=== PATIENT | male | born 1940 | race Caucasian/White ===

== ENCOUNTER 2017-05-18 20:50 | Outpatient (CLI) | payer OTHER ==
[2017-05-18 19:25] LABS: BASOPHILS % (AUTO) 0.5 %; EOSINOPHILS # (AUTO) 0.2 10^3/uL (0.0-0.7); EOSINOPHILS % (AUTO) 3.1 %; HCT - HEMATOCRIT 31.7 % (42.0-52.0); HGB - HEMOGLOBIN 10.7 g/dL (14.0-18.0); IMMATURE RETIC FRACTION 0.43; LYMPHOCYTES # (AUTO) 1.7 10^3/uL (1.5-3.5); LYMPHOCYTES % (AUTO) 24.7 %; MEAN CORPUSCULAR HEMOGLOBIN 31.6 pg (27.0-31.0); MEAN CORPUSCULAR HGB CONC 33.8 g/dL (32.0-36.0); MEAN CORPUSCULAR VOLUME 93.6 fL (80.0-94.0); MEAN PLATELET VOLUME 7.7 fL (7.4-11.4); MONOCYTES # (AUTO) 0.6 10^3/uL (0.0-1.0); MONOCYTES % (AUTO) 8.6 %; NEUTROPHILS # (AUTO) 4.5 10^3/uL (1.5-6.6); NEUTROPHILS % (AUTO) 63.1 %; RED BLOOD COUNT 3.39 10^6/uL (4.70-6.10); UNCORRECTED WHITE BLOOD COUNT 7.1 x10^3/uL; WHITE BLOOD COUNT 7.1 x10^3/uL (4.8-10.8)
[2017-05-18 19:40] LABS: FERRITIN 15.8 ng/mL (23.9-336.2); IRON 58 ug/dL (45-182); TOTAL IRON BINDING CAPACITY 340 ug/dL (250-450); TRANSFERRIN 243 mg/dL (180-329)
[2017-05-18 19:44] LABS: FOLATE 18.15 ng/mL (5.90 - >24.8)
== END 2017-05-18 20:51 | disposition home or self-care (01) ==
LOC: LAB.WCP 20:50
PROVIDERS: ATTEND Family Medicine
DX: D64.9 Anemia, unspecified (principal)
CPT/HCPCS: 36415; 82607; 82728; 82746; 83540; 84466; 85025; 85044

== ENCOUNTER 2017-12-03 08:11 | Outpatient (CLI) | payer OTHER ==
[2017-12-03 12:42] LABS: BASOPHILS % (AUTO) 0.7 %; EOSINOPHILS # (AUTO) 0.2 10^3/uL (0.0-0.7); EOSINOPHILS % (AUTO) 3.9 %; HGB - HEMOGLOBIN 11.4 g/dL (14.0-18.0); LYMPHOCYTES % (AUTO) 31.6 %; MEAN CORPUSCULAR HEMOGLOBIN 31.9 pg (27.0-31.0); MEAN CORPUSCULAR HGB CONC 34.2 g/dL (32.0-36.0); MEAN CORPUSCULAR VOLUME 93.2 fL (80.0-94.0); MEAN PLATELET VOLUME 7.7 fL (7.4-11.4); MONOCYTES # (AUTO) 0.5 10^3/uL (0.0-1.0); MONOCYTES % (AUTO) 8.3 %; NEUTROPHILS # (AUTO) 3.5 10^3/uL (1.5-6.6); NEUTROPHILS % (AUTO) 55.5 %; PLT - PLATELET COUNT 237 10^3/uL (130-450); RED BLOOD COUNT 3.59 10^6/uL (4.70-6.10); RED CELL DISTRIBUTION WIDTH 13.3 % (12.0-15.0); WHITE BLOOD COUNT 6.3 x10^3/uL (4.8-10.8)
[2017-12-03 13:14] LABS: ALBUMIN 4.2 g/dL (3.2-5.5); ALBUMIN/GLOBULIN RATIO 1.4 (1.0-2.2); ALKALINE PHOSPHATASE 118 IU/L (42-121); ALT ALANINE AMINOTRANSFERASE 20 IU/L (10-60); AST ASPARTATE AMINOTRANSFERASE 31 IU/L (10-42); BILIRUBIN,TOTAL 0.8 mg/dL (0.2-1.0); BUN - BLOOD UREA NITROGEN 14 mg/dL (6-20); CALCIUM 9.4 mg/dL (8.5-10.3); CARBON DIOXIDE - CO2 29 mmol/L (21-32); CHLORIDE 104 mmol/L (101-111); CHOL/HDL RATIO 2.8 (<5.0); CHOLESTEROL 124 mg/dL; CREATININE 1.1 mg/dL (0.6-1.2); GFR - MDRD 65 (>89); GLUCOSE 100 mg/dL (70-100); HDL CHOLESTEROL 45 mg/dL; LDL CHOLESTEROL,CALCULATED 53 mg/dL; LDL/HDL RATIO 1.2 (<3.6); SODIUM 138 mmol/L (135-145); TOTAL PROTEIN 7.3 g/dL (6.7-8.2); VLDL CHOLESTEROL 26 mg/dL
[2017-12-03 13:46] LABS: HB2 TOTAL 12.1 g/dL; HEMOGLOBIN A1C 0.52 g/dL; HEMOGLOBIN A1C % 6.1 % (4.6-6.2)
== END 2017-12-03 08:12 | disposition home or self-care (01) ==
LOC: LAB.WCP 08:11
PROVIDERS: ATTEND Family Medicine
DX: I10 Essential (primary) hypertension (principal); E78.5 Hyperlipidemia, unspecified; Z12.5 Encounter for screening for malignant neoplasm of prostate
CPT/HCPCS: 36415; 80053; 80061; 83036; 83721; 84153; 85025

== ENCOUNTER 2018-06-16 08:10 | Outpatient (CLI) | payer OTHER ==
[2018-06-16 14:17] LABS: HB2 TOTAL 11.7 g/dL; HEMOGLOBIN A1C 0.51 g/dL; HEMOGLOBIN A1C % 6.1 % (4.6-6.2)
[2018-06-16 14:21] LABS: PSA FREE 1.06 ng/mL (0.16-2.81)
[2018-06-16 14:22] LABS: PSA TOTAL 3.37 ng/mL (0.000-2.000)
[2018-06-16 14:32] LABS: ALBUMIN 4.1 g/dL (3.2-5.5); ALBUMIN/GLOBULIN RATIO 1.4 (1.0-2.2); BILIRUBIN,TOTAL 0.2 mg/dL (0.2-1.0); CALCIUM 9.5 mg/dL (8.5-10.3); CREATININE 0.9 mg/dL (0.6-1.2); TOTAL PROTEIN 7.1 g/dL (6.7-8.2)
== END 2018-06-16 23:59 | disposition home or self-care (01) ==
LOC: LAB.WCP 08:10
PROVIDERS: ATTEND Family Medicine
DX: E11.40 Type 2 diabetes mellitus with diabetic neuropathy, unspecified (principal); B35.1 Tinea unguium; R97.20 Elevated prostate specific antigen [PSA]; I10 Essential (primary) hypertension
CPT/HCPCS: 36415; 80053; 82043; 83036; 84153; 84154

== ENCOUNTER 2018-07-08 08:00 | Outpatient (CLI) | payer OTHER ==
[2018-07-08 12:14] LABS: BASOPHILS % (AUTO) 0.1 %; EOSINOPHILS # (AUTO) 0.1 10^3/uL (0.0-0.7); EOSINOPHILS % (AUTO) 0.9 %; LYMPHOCYTES # (AUTO) 1.2 10^3/uL (1.5-3.5); LYMPHOCYTES % (AUTO) 9.4 %; MEAN CORPUSCULAR HEMOGLOBIN 31.8 pg (27.0-31.0); MEAN CORPUSCULAR HGB CONC 34.4 g/dL (32.0-36.0); MEAN CORPUSCULAR VOLUME 92.6 fL (80.0-94.0); MEAN PLATELET VOLUME 7.8 fL (7.4-11.4); MONOCYTES # (AUTO) 1.1 10^3/uL (0.0-1.0); NEUTROPHILS # (AUTO) 10.1 10^3/uL (1.5-6.6); NEUTROPHILS % (AUTO) 80.6 %; PLT - PLATELET COUNT 320 10^3/uL (130-450); RED BLOOD COUNT 3.46 10^6/uL (4.70-6.10); RED CELL DISTRIBUTION WIDTH 13.4 % (12.0-15.0); WHITE BLOOD COUNT 12.6 x10^3/uL (4.8-10.8)
[2018-07-08 13:28] LABS: ALBUMIN 3.5 g/dL (3.2-5.5); BILIRUBIN,TOTAL 1.7 mg/dL (0.2-1.0); CALCIUM 9.1 mg/dL (8.5-10.3); CREATININE 5.5 mg/dL (0.6-1.2)
== END 2018-07-08 23:59 | disposition home or self-care (01) ==
LOC: LAB.WCP 08:00
PROVIDERS: ATTEND Physician Assistant
DX: R29.6 Repeated falls (principal); E11.9 Type 2 diabetes mellitus without complications
CPT/HCPCS: 36415; 80053; 85025

== ENCOUNTER 2018-07-08 15:00 | Inpatient (IN) | payer MEDICARE, OTHER ==
[2018-07-08 16:41] LABS: GLUCOSE, URINE (UA) NEGATIVE (NEGATIVE); KETONES,URINE (UA) NEGATIVE (NEGATIVE); LEUKOCYTE ESTERASE, URINE NEGATIVE (NEGATIVE); NITRITE,URINE NEGATIVE (NEGATIVE); OCCULT BLOOD,URINE LARGE (NEGATIVE); PROTEIN,URINE 30 mg/dL (NEGATIVE); UROBILINOGEN,URINE 0.2 (NORMAL) E.U./dL (NORMAL)
[2018-07-08 16:44] LABS: BILIRUBIN,URINE SMALL (NEGATIVE); CLARITY,URINE HAZY (CLEAR); ICTOTEST,URINE POSITIVE
[2018-07-08 16:44] LABS: BASOPHILS % (AUTO) 0.1 %; EOSINOPHILS # (AUTO) 0.1 10^3/uL (0.0-0.7); EOSINOPHILS % (AUTO) 1.1 %; HGB - HEMOGLOBIN 11.5 g/dL (14.0-18.0); LYMPHOCYTES # (AUTO) 1.4 10^3/uL (1.5-3.5); LYMPHOCYTES % (AUTO) 10.9 %; MEAN CORPUSCULAR HEMOGLOBIN 31.2 pg (27.0-31.0); MEAN CORPUSCULAR HGB CONC 33.8 g/dL (32.0-36.0); MEAN CORPUSCULAR VOLUME 92.3 fL (80.0-94.0); MEAN PLATELET VOLUME 7.2 fL (7.4-11.4); MONOCYTES # (AUTO) 1.1 10^3/uL (0.0-1.0); MONOCYTES % (AUTO) 8.6 %; NEUTROPHILS # (AUTO) 9.9 10^3/uL (1.5-6.6); NEUTROPHILS % (AUTO) 79.3 %; PLT - PLATELET COUNT 354 10^3/uL (130-450); RED BLOOD COUNT 3.69 10^6/uL (4.70-6.10); RED CELL DISTRIBUTION WIDTH 13.5 % (12.0-15.0); WHITE BLOOD COUNT 12.5 x10^3/uL (4.8-10.8)
[2018-07-08 16:48] LABS: AMORPHOUS SEDIMENT,UR Moderate /LPF; BACTERIA,URINE Rare /HPF (None Seen); EPITHELIAL CELLS,UR FEW Transitional /HPF (<= Few); SQUAMOUS EPITHELIAL CELL,UR FEW Squamous (<= Few)
[2018-07-08 16:57] LABS: PT - PROTHROMBIN TIME 11.7 secs (9.9-12.6)
--- NOTE | 2018-07-08 17:03 | XRAY Report ---
Reason: cp Procedure Date: 07/08/2018 Accession Number: [id number] / [id number] Procedure: XR - Chest 2 View X-Ray CPT Code: 54618 FULL RESULT: EXAM: CHEST RADIOGRAPHY EXAM DATE: 07/08/2018 04:39 PM. CLINICAL HISTORY: Chest pain. COMPARISON: RIBS W/PA CHEST RT 07/08/2018 9:31 AM. TECHNIQUE: 2 views. FINDINGS: Heart size is normal. Calcified plaques in the thoracic aorta. Lung volumes are low. There are patchy densities in the lung bases bilaterally. No pleural effusions or pneumothoraces. The bones are osteopenic. Previously described right fifth rib fracture is not well seen on these projections. IMPRESSION: Nonspecific patchy densities in the lung bases bilaterally. No significant change from the recent prior exam. Infectious etiology or aspiration not excluded. RADIA
[2018-07-08 17:24] LABS: ALBUMIN 3.8 g/dL (3.2-5.5); ALBUMIN/GLOBULIN RATIO 0.9 (1.0-2.2); BILIRUBIN,TOTAL 1.4 mg/dL (0.2-1.0); CALCIUM 9.1 mg/dL (8.5-10.3); CREATININE 5.4 mg/dL (0.6-1.2)
[2018-07-08] MEDS ORDERED: SODIUM CHLORIDE 0.9% 2,000 ML IV ONE (18:29)
--- NOTE | 2018-07-08 18:35 | ED Physician Documentation ---
History of Present Illness - Stated complaint Stated Complaint: SENT BY DR Minnie Goddard information Additional information: 78-year-old male was sent to the emergency department for further evaluation of abnormal labs. The patient recently fell at home and was on the ground for a prolonged period of time. The patient reports pain in his right ribs and body wide muscle pain. The patient is felt confused and fatigued and generally unwell. Symptoms are described as severe. No relieving factors. No other associated symptoms. The patient also struck his head Review of Systems Constitutional: reports: Myalgias, Fatigue. denies: Fever Eyes: denies: Discharge Ears: denies: Ear pain Nose: denies: Congestion Throat: denies: Sore throat Cardiac: reports: Chest pain / pressure Respiratory: denies: Dyspnea, Cough GI: denies: Abdominal Pain : reports: Hematuria. denies: Dysuria Skin: denies: Rash Musculoskeletal: denies: Neck pain, Back pain, Extremity pain Neurologic: denies: Generalized weakness Immunocompromised: denies: Chemotherapy PD PAST MEDICAL HISTORY - Present Medications Home Medications: Ambulatory Orders Medication Instructions Recorded Confirmed Lisinopril 20 mg PO DAILY 12/26/12 07/08/18 Metformin HCl 500 mg PO BID 12/26/12 07/08/18 Simvastatin 20 mg PO DAILY 12/26/12 07/08/18 Aspirin Chewable [[facility] Adam 81 mg PO DAILY 07/08/18 07/08/18 Aspirin] Gabapentin 600 mg PO TID 07/08/18 07/08/18 Hydrochlorothiazide 12.5 mg PO DAILY 07/08/18 07/08/18 - Allergies Allergies/Adverse Reactions: Allergies Allergy/AdvReac Type Severity Reaction Status Date / Time nortriptyline [Nortriptyline] Allergy Unknown unknown Verified 07/08/18 15:05 PD ED PE NORMAL - General General: Alert and oriented X 3, Other (The patient appears uncomfortable and has bruising throughout his entire torso) - HEENT HEENT: Atraumatic, PERRL, Ears normal - Neck Neck: No bony TTP - Cardiac Cardiac: RRR, Strong equal pulses, Other (The patient has right-sided chest wall tenderness, no crepitus or subcutaneous emphysema) - Respiratory Respiratory: No respiratory distress, Clear bilaterally - Abdomen Abdomen: Soft, Non tender, Non distended - Derm Derm: Other (Bruising in multiple places) - Extremities Extremities: No deformity, No tenderness to palpate, Normal ROM s pain - Neuro Neuro: Alert and oriented X 3, No motor deficit, Normal speech - Psych Psych: Normal affect Results - Vitals Vitals: Vital Signs - 24 hr 07/08/18 07/08/18 07/08/18 15:05 17:36 18:46 Temperature 36.6 C Heart Rate 97 79 80 Respiratory 16 18 18 Rate Blood Pressure 132/47 H 116/71 125/71 O2 Saturation 98 98 97 Oxygen O2 Source Room air - Labs Labs: Laboratory Tests 07/08/18 07/08/18 07/08/18 16:00 16:15 16:15 WBC 12.5 H RBC 3.69 L Hgb 11.5 L Hct 34.1 L MCV 92.3 MCH 31.2 H MCHC 33.8 RDW 13.5 Plt Count 354 MPV 7.2 L Neut # (Auto) 9.9 H Lymph # (Auto) 1.4 L [place] # (Auto) 1.1 H Eos # (Auto) 0.1 Baso # (Auto) 0.0 Absolute Nucleated RBC 0.00 Nucleated RBC % 0.0 PT 11.7 INR 1.0 Sodium Potassium Chloride Carbon Dioxide Anion Gap BUN Creatinine Estimated GFR (MDRD) Glucose Calcium Total Bilirubin AST ALT Alkaline Phosphatase Total Creatine Kinase Total Protein Albumin Globulin Albumin/Globulin Ratio Lipase Urine Color DARK YELLOW Urine Clarity HAZY Urine pH 5.0 Ur Specific [place] >=1.030 H Urine Protein 30 H Urine Glucose (UA) NEGATIVE Urine Ketones NEGATIVE Urine Occult Blood LARGE H Urine Nitrite NEGATIVE Urine Bilirubin SMALL H Urine Urobilinogen 0.2 (NORMAL) Ur Leukocyte Esterase NEGATIVE Urine RBC 11-25 H Urine WBC 0-3 Ur Epithelial Cells FEW Transitional Ur Squamous Epith Cells FEW Squamous Amorphous Sediment Moderate Urine Bacteria Rare Ur Microscopic Review INDICATED Urine Culture Comments NOT INDICATED 07/08/18 16:15 WBC RBC Hgb Hct MCV MCH MCHC RDW Plt Count MPV Neut # (Auto) Lymph # (Auto) [place] # (Auto) Eos # (Auto) Baso # (Auto) Absolute Nucleated RBC Nucleated RBC % PT INR Sodium 136 Potassium 3.7 Chloride 98 L Carbon Dioxide 23 Anion Gap 15.0 H BUN 93 H* Creatinine 5.4 H Estimated GFR (MDRD) 10 L Glucose 159 H Calcium 9.1 Total Bilirubin 1.4 H AST 302 H ALT 128 H Alkaline Phosphatase 210 H Total Creatine Kinase 50382 H* Total Protein 8.0 Albumin 3.8 Globulin 4.2 Albumin/Globulin Ratio 0.9 L Lipase 36 Urine Color Urine Clarity Urine pH Ur Specific [place] Urine Protein Urine Glucose (UA) Urine Ketones Urine Occult Blood Urine Nitrite Urine Bilirubin Urine Urobilinogen Ur Leukocyte Esterase Urine RBC Urine WBC Ur Epithelial Cells Ur Squamous Epith Cells Amorphous Sediment Urine Bacteria Ur Microscopic Review Urine Culture Comments - Rads (name of study) CXR Radiology: Final report received CT head Radiology: Final report received, See rad report PD MEDICAL DECISION MAKING - ED course ED course: The patient appears to have acute renal failure secondary to rhabdomyolysis and will require admission to the hospital for further management of this acute finding. The patient also has a rib fracture which will need ongoing pain management. The findings and plan were discussed the patient who understands and agrees to the plan. The case was discussed with the hospitalist who accepts the patient onto his service. Departure - Departure Disposition: [facility] DC/Xfer Clinical Impression: Acute kidney injury due to trauma Rhabdomyolysis Qualifiers: Rhabdomyolysis type: traumatic Encounter type: initial encounter Qualified Code(s): T79.6XXA - Traumatic ischemia of muscle, initial encounter Rib fracture Qualifiers: Encounter type: initial encounter Rib fracture type: single rib Fracture type: closed Laterality: right Qualified Code(s): S22.31XA - Fracture of one rib, right side, initial encounter for closed fracture Condition: Fair Discharge Date/Time: 07/08/18 20:25
--- NOTE | 2018-07-08 19:24 | CT Report ---
Reason: fall, confusion Procedure Date: 07/08/2018 Accession Number: [id number] / [id number] Procedure: CT - Head W/O CPT Code: FULL RESULT: EXAM: CT HEAD EXAM DATE: 07/08/2018 06:42 PM. CLINICAL HISTORY: Fall, confusion. COMPARISON: HEAD 06/24/2006 9:21 AM. TECHNIQUE: Multiaxial CT images were obtained from the foramen magnum to the vertex. Reformats: Sagittal and coronal. IV contrast: None. In accordance with CT protocol optimization, one or more of the following dose reduction techniques were utilized for this exam: automated exposure control, adjustment of mA and/or KV based on patient size, or use of iterative reconstructive technique. FINDINGS: Parenchyma: There is encephalomalacia within the inferior left frontal lobe which is new since previous. There is volume loss in the right parietal occipital lobe. Negative for acute intracranial hemorrhage. No significant midline shift. Extraaxial Spaces: No subdural or epidural hematoma. Ventricles: The ventricles appear symmetric in size and normal in position. Sinuses and Orbits: There is an air-fluid level in the right maxillary sinus. There is fluid in the right frontal and sphenoid sinus. There is bilateral ethmoid sinus mucosal thickening. The mastoid sinuses appear clear. Bones: No evidence of fracture or calvarial defect. Other: None. IMPRESSION: 1. Paranasal sinusitis with air-fluid levels in the right maxillary, right frontal and bilateral sphenoid sinuses. 2. 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 3. Negative for acute hemorrhage or mass-effect. RADIA
[2018-07-08] MEDS ORDERED: AZITHROMYCIN 250 MG TABLET PO SCH (20:11)
[2018-07-08] MEDS: SODIUM CHLORIDE 0.9% 1,000 ML IV SCH (21:03)
[2018-07-08] MEDS: cefTRIAXone 1 GM in SODIUM CHLORIDE 0.9% MINIBAG 100 ML IV SCH (21:15)
[2018-07-08] MEDS: traMADol 50 MG TABLET PO PRN (21:19)
--- NOTE | 2018-07-08 22:59 | HISTORY & PHYSICAL EXAMINATION ---
Chief Complaint - Chief Complaint Chief Complaint: right rib, hip and elbow pain History of Present Illness - Admitted From Admitted From:: ED - History of Present Illness HPI Comment/Other: Patient is an 78 y/o otherwise healthy male who presented to the ED at the request of his primary care physician for abnormal labs. He saw his PCP today with complain of right-sided rib, hip and elbow pain. He fell on 07/05/18. He does not remember how he fell. He thinks he was sleep walking at the time. The lab work done at the office included a BMP, which showed a Creatinine of 5.9. At bedside he is fully awake and alert. He denies chest pain but reports pain with coughing. He denies TOY but thinks he been wheezing in the past week. His and great-grandson have had a respiratory and viral illness lately. He de nies abdominal pain, nausea and vomiting. He denies fever or chills. His elbow and hip still hurts. He has a bruise on his right hip and a bandage around a laceration on his right elbow. At baseline, he walks and drive on his own and is independent of activities of daily living History - Past Medical History Cardiovascular: reports: Hypertension, High cholesterol Respiratory: reports: None Neuro: reports: CVA Endocrine/Autoimmune: reports: None, Type 2 diabetes GI: reports: None : reports: None, Kidney stones HEENT: reports: None Psych: reports: None Musculoskeletal: reports: Osteoarthritis Derm: reports: None - Family & Social History Family History: Mother: , Renal Disease/Failure, Father: , Brother: , Cancer Living arrangement: At home Living Situation: With spouse/s.o. Social History Notes: Patient is of the Jehovah witness meera - Substance History Use: Uses substance without health or social issues: NONE Dependence: Experiences withdrawal or developed tolerances: NONE - POLST Patient has POLST: No POLST Status: Full Code Meds/Allgy - Home Medications Home Medications: Ambulatory Orders Medication Instructions Recorded Confirmed Lisinopril 20 mg PO DAILY 12/26/12 07/08/18 Metformin HCl 500 mg PO BID 12/26/12 07/08/18 Simvastatin 20 mg PO DAILY 12/26/12 07/08/18 Aspirin Chewable [[facility] Adam 81 mg PO DAILY 07/08/18 07/08/18 Aspirin] Gabapentin 600 mg PO TID 07/08/18 07/08/18 Hydrochlorothiazide 12.5 mg PO DAILY 07/08/18 07/08/18 - Allergies Allergies/Adverse Reactions: Allergies Allergy/AdvReac Type Severity Reaction Status Date / Time nortriptyline [Nortriptyline] Allergy Unknown unknown Verified 07/08/18 15:05 Review of Systems - Constitutional Constitutional: denies: Fatigue, Fever, Chills, Weight gain, Weight loss - Eyes Eyes: denies: Blurred vision, Vision loss, Dipolpia - Ears, Nose & Throat Ears, Nose & Throat: denies: Ear pain, Hearing loss, Nasal obstruction, Nasal congestion - Cardiovascular Cariovascular: denies: Irregular heart rate, Chest pain, Edema, Lightheadedness, Syncope - Respiratory Respiratory: reports: Cough, Wheezing. denies: Hemoptysis, SOB with exertion - Gastrointestinal Gastrointestinal: denies: Abdominal pain, Abdominal distention, Constipation, Diarrhea, Reflux/heartburn, Poor appetite - Genitourinary Genitourinary: denies: Dysuria, Frequency, Urgency, Hematuria - Musculoskeletal Musculoskeletal: reports: Muscle pain, Muscle aches, Joint pain (right hip) - Neurological Neurological: denies: General weakness, Focal weakness, Headache, Dizziness, Numbness - Psychiatric Psychiatric: denies: Depression, Anxiety - Hematologic/Lymphatic Hematologic/Lymphatic: reports: Bruising (from fall). denies: Blood clots Prior Level of Functionality: Patient is an otherwise very healthy 78 y/o man. He walks unaided, still drives with no difficulty. Lives with his . Could be described as stoic Independent of activity of daily living Exam - Vital Signs Vital Signs: Vital Signs x48h Temp Pulse Pulse Resp BP BP Pulse Ox 07/08/18 20:51 36.7 C 91 18 146/61 H 97 07/08/18 18:46 80 18 125/71 97 07/08/18 17:36 79 18 116/71 98 07/08/18 15:05 36.6 C 97 16 132/47 H 98 - Physical Exam General Appearance: positive: Alert, Moderate distress Eyes Bilateral: positive: Normal inspection, PERRL, EOMI ENT: positive: ENT inspection nml. negative: Purulent nasal drainage Neck: positive: Nml inspection, No JVD, Trachea midline Respiratory: positive: No respiratory distress, Rhonchi Cardiovascular: positive: Regular rate & rhythm. negative: No murmur, No gallop Abdomen: positive: Non-tender, Nml bowel sounds, No distention. negative: Tenderness Back: positive: Nml inspection Skin: positive: Warm, Other (bruised right hip) Extremities: positive: Nml appearance, No pedal edema Neurologic/Psychiatric: positive: Oriented x3 Sepsis Event Note (H) - Evaluation Current Stage of Sepsis: Sepsis Possible source of Sepsis: positive: Pulmonary - Sepsis Criteria Sepsis Criteria: Recorded Heart Rate greater than 90 bpm, WBC count greater than 12,000 or less than 4000 Conclusion/Plan - Problem List (1) Rhabdomyolysis Conclusion/Plan: Likely due to patient's fall 3 days ago Given 2 L normal saline bolus in the ED Will continue hydration with normal saline at 150ml/hr Qualifiers: Rhabdomyolysis type: traumatic Encounter type: initial encounter Qualified Code(s): T79.6XXA - Traumatic ischemia of muscle, initial encounter (2) Acute kidney injury due to trauma Conclusion/Plan: 2/ Rhabdomyolysis Patient currently being hydrated Anticipate/ expect improvement. If no improvement with broaden work up. Will hold lisinopril, HCTZ and meformin for the time being (3) Rib fracture Conclusion/Plan: Pain management with tramadol Qualifiers: Encounter type: initial encounter Rib fracture type: single rib Fracture type: closed Laterality: right Qualified Code(s): S22.31XA - Fracture of one rib, right side, initial encounter for closed fracture (4) Community acquired bacterial pneumonia Conclusion/Plan: On rocephin and azithromycin Will hold doxyxycline and augmentin prescribed by PCP. Patient has not started them (5) Diabetes mellitus, type II Conclusion/Plan: Metformin currently held due to acute kidney injury If needed, would order SSI (6) Hypertension Conclusion/Plan: Lisinopril and HCTZ held Will order hydralazine 10mg IV prn for SBP> 160 (7) Hyperlipidemia Conclusion/Plan: Will hold simvastatin for now (8) History of CVA (cerebrovascular accident) Conclusion/Plan: No residual deficits On aspirin. Will continue - Lab Results Fish Bones: 07/08/18 16:15 07/08/18 16:15 Core Measures - Anticipated LOS I expect patient to be DC'd or transferred within 96 hours.: Yes - DVT/VTE - Prophylaxis VTE/DVT Device ordered at admit?: Yes VTE/DVT Prophylaxis med ordered at admit?: No
[2018-07-08] MEDS ORDERED: hydrALAZINE INJ 20 MG/ML VIAL IVP PRN (23:30)
[2018-07-09] MEDS: SODIUM CHLORIDE FLUSH 0.9% 10 ML SYRINGE IVP SCH ×3 (01:12→21:01)
[2018-07-09] MEDS: SODIUM CHLORIDE 0.9% 1,000 ML IV SCH ×3 (03:51→21:01)
[2018-07-09 05:17] LABS: BASOPHILS % (AUTO) 0.5 %; EOSINOPHILS # (AUTO) 0.3 10^3/uL (0.0-0.7); EOSINOPHILS % (AUTO) 3.1 %; HGB - HEMOGLOBIN 9.5 g/dL (14.0-18.0); LYMPHOCYTES # (AUTO) 1.4 10^3/uL (1.5-3.5); LYMPHOCYTES % (AUTO) 16.5 %; MEAN CORPUSCULAR HEMOGLOBIN 31.8 pg (27.0-31.0); MEAN CORPUSCULAR HGB CONC 33.3 g/dL (32.0-36.0); MEAN CORPUSCULAR VOLUME 95.5 fL (80.0-94.0); MEAN PLATELET VOLUME 7.1 fL (7.4-11.4); MONOCYTES % (AUTO) 11.7 %; NEUTROPHILS # (AUTO) 5.6 10^3/uL (1.5-6.6); NEUTROPHILS % (AUTO) 68.2 %; PLT - PLATELET COUNT 285 10^3/uL (130-450); RED CELL DISTRIBUTION WIDTH 13.9 % (12.0-15.0); WHITE BLOOD COUNT 8.2 x10^3/uL (4.8-10.8)
[2018-07-09] MEDS: traMADol 50 MG TABLET PO PRN (06:25)
[2018-07-09] MEDS ORDERED: SODIUM CHLORIDE 0.9% 1,000 ML IV SCH (07:00)
[2018-07-09 07:20] LABS: CALCIUM 8.1 mg/dL (8.5-10.3); CREATININE 5.8 mg/dL (0.6-1.2)
[2018-07-09 07:27] LABS: BILIRUBIN,URINE NEGATIVE (NEGATIVE); GLUCOSE, URINE (UA) NEGATIVE (NEGATIVE); KETONES,URINE (UA) NEGATIVE (NEGATIVE); LEUKOCYTE ESTERASE, URINE NEGATIVE (NEGATIVE); NITRITE,URINE NEGATIVE (NEGATIVE); OCCULT BLOOD,URINE LARGE (NEGATIVE); PH,URINE 5.5 PH (5.0-7.5); PROTEIN,URINE 30 mg/dL (NEGATIVE); UROBILINOGEN,URINE 0.2 (NORMAL) E.U./dL (NORMAL)
--- NOTE | 2018-07-09 07:37 | XRAY Report ---
Reason: increasing oxygen requirement Procedure Date: 07/09/2018 Accession Number: [id number] / [id number] Procedure: XR - Chest 1 View X-Ray CPT Code: 49473 FULL RESULT: EXAM: CHEST RADIOGRAPHY EXAM DATE: 07/09/2018 07:30 AM. CLINICAL HISTORY: Increasing oxygen requirement. COMPARISON: CHEST 2 VIEW 07/08/2018 4:39 PM. TECHNIQUE: 1 view. FINDINGS: Lungs/Pleura: Mild pulmonary vascular congestion is increased compared to prior. There are increased patchy opacities at the bilateral lung bases. There are small bilateral pleural effusions, increased compared to prior. Lung volumes are low. No pneumothorax. Mediastinum: There is borderline enlargement of the cardiac silhouette. Other: No acute osseous abnormality. IMPRESSION: 1. Worsening pulmonary vascular congestion. 2. Increasing patchy bilateral basilar atelectasis or infiltrate. 3. Small bilateral pleural effusions, increased compared to prior. RADIA
[2018-07-09 07:40] LABS: CLARITY,URINE CLEAR (CLEAR)
[2018-07-09 07:45] LABS: BACTERIA,URINE Few /HPF (None Seen); RBC,URINE 0-5 /HPF (0-5); SQUAMOUS EPITHELIAL CELL,UR FEW Squamous (<= Few)
[2018-07-09 07:46] LABS: AMORPHOUS SEDIMENT,UR Marked /LPF
[2018-07-09] MEDS ORDERED: ASPIRIN CHEW 81 MG TABLET PO SCH (09:00)
--- NOTE | 2018-07-09 09:19 | XRAY Report ---
Reason: Fall 3 days ago, R hip pain, has bruise Procedure Date: 07/09/2018 Accession Number: [id number] / [id number] Procedure: XR - Hip w/Pelvis 2-3V RT CPT Code: FULL RESULT: EXAM: RIGHT HIP RADIOGRAPHY EXAM DATE: 07/09/2018 09:04 AM. CLINICAL HISTORY: Fall 3 days ago, R hip pain, has bruise. COMPARISON: 08/31/2014 8:10 AM CHEST 1 VIEW 07/09/2018 7:15 AM. TECHNIQUE: 2 views. FINDINGS: Bones: Bones appear osteopenic. No displaced fracture demonstrated. Evaluation of sacrum is limited by overlying bowel gas and osteopenia. Joints: Mild right hip joint space narrowing. No dislocation. Soft Tissues: Normal. No soft tissue swelling. IMPRESSION: 1. Diffuse osteopenia without radiographic evidence for fracture. If persistent clinical concern, consider MRI. 2. Mild right hip degenerative changes. RADIA
[2018-07-09] MEDS ORDERED: ACETAMINOPHEN 325 MG TABLET PO PRN (09:21)
[2018-07-09] MEDS: POLYETHYLENE GLYCOL 3350 17 GM PACKET PO SCH (10:13)
--- NOTE | 2018-07-09 10:22 | PROVIDER PROGRESS NOTE ---
Assessment/Plan - Problem List (1) Acute kidney injury due to trauma Assessment/Plan: DAVID worsened, by labs, since last evening, likely from rhabdo. Will continue with plan of iv hydration. Monitor renal function q 12h. Consider renal US or CT w/o contrast of abdomen, to R/O obstruction. Follow I's and O's. I told the patient that he would need transfer to a higher level of care, if DAVID does not start to reverse. (2) Rhabdomyolysis Qualifiers: Rhabdomyolysis type: traumatic Encounter type: initial encounter Qualifie d Code(s): T79.6XXA - Traumatic ischemia of muscle, initial encounter Assessment/Plan: S/P fall at home 3 days ago. Follow CK. Continue iv hydration. Monitor CK and renal function. (3) Fall at home Qualifiers: Encounter type: sequela Qualified Code(s): W19.XXXS - Unspecified fall, sequela; Y92.009 - Unspecified place in unspecified non-institutional (private) residence as the place of occurrence of the external cause Assessment/Plan: He described to me what he can remember about the fall at home: He did have a fever and thinks he was getting sick from his or grandson's respiratory infection. He was sleeping in his bed 4 nights ago, he must have gotten up, he remembers falling in a guest bedroom, 3 times, the second fall resulted in pain to the elbow and R chest area. Next he remembers walking back into his own bedroom, seeing his pants on the bed (therefore he must have already been in bed and asleep, he said), so he got back into bed and went to sleep. He cannot R/O having had syncope 3 times, but he has never fainted before in his life. Because of severe pain, he finally went to his PCP 3 days later. The fall and trauma resulted in R 5th rib fracture, elbow abrasion and R hip bruise. Will Xray R hip, which was not done at admission, looking for hip or pelvic fracture. Will proceed with a syncope work-up: check troponins to R/O an acute CO, obtain Echo, carotid Dopplers and orthostatic VS checks. His resting BP sitting is 89 today, suggesting that he is orthostatic and volume depleted. (4) Community acquired bacterial pneumonia Assessment/Plan: The patient has a wet, non-productive cough. He was started on empiric antibiotics for a community acquired pneumonia. (5) Rib fracture Qualifiers: Encounter type: subsequent encounter Rib fracture type: single rib Fracture type: closed Laterality: right Assessment/Plan: Pain control is fair, per his RN. Will increase Incentive Spirometry to q2h while awake. Will add PEP (positive airway back pressure) treatment qid. Discussed both of these with RT. (6) Elevated LFTs Assessment/Plan: Etiology of this is unclear. Will check a BNP and check LVEF by Echo, possible passive liver congestion. Possibly he had liver contusion with the fall on his R side. Possible hepato-renal syndrome. Will follow renal and liver function closely by labs, and consider a CT abdomen. (7) Diabetes mellitus, type II Assessment/Plan: Metformin is on hold due to acute kidney injury. Pt on a cardiac and carb-controlled diet and ss Reg Insulin coverage. - Current Meds Current Meds: Current Medications Generic Name Dose Route Start Last Admin Trade Name Freq PRN Reason Stop Dose Admin Aspirin 81 mg 07/09/18 09:00 07/09/18 10:14 [facility] [place] Aspirin PO 81 mg DAILY MARCELINA Administration Ceftriaxone Sodium 1 gm/ 100 mls @ 200 mls/hr 07/08/18 21:00 07/08/18 23:02 Sodium Chloride IV Infused Q24H MARCELINA Infusion Polyethylene Glycol 17 gm 07/09/18 09:00 07/09/18 10:13 Miralax PO 17 gm DAILY MARCELINA Administration Sodium Chloride 10 ml 07/09/18 01:00 07/09/18 10:14 Normal Saline Flush 0.9% IVP Not Given 0100,0900,1700 MARCELINA Tramadol HCl 50 mg 07/08/18 20:07 07/09/18 06:25 Ultram PO 50 mg Q6H PRN Administration PAIN - Lab Result Fish Bone Diagrams: 07/09/18 04:58 07/09/18 16:15 - Additional Planning My Orders: My Active Orders 07/09/18 09:21 Acetaminophen [Tylenol] 650 mg PO Q4HR PRN 07/09/18 10:15 PEP [PEP Therapy] [RC] QID 07/09/18 16:00 CMP [COMPREHENSIVE METABOLIC PANEL] [CHEM] Timed Subjective - Subjective Patient Reports: Feeling Better Nursing Reports: Other (Rib pain not too bad, even during coughing) Objective Vital Signs: Vital Signs - 24 hr 07/08/18 07/08/18 07/08/18 15:05 17:36 18:46 Temperature 36.6 C Heart Rate 97 79 80 Heart Rate [ Brachial] Respiratory 16 18 18 Rate Blood Pressure 132/47 H 116/71 125/71 Blood Pressure [Right Brachial artery] O2 Saturation 98 98 97 07/08/18 07/09/18 07/09/18 20:51 00:00 07:00 Temperature 36.7 C 37.0 C 36.6 C Heart Rate Heart Rate [ 91 84 76 Brachial] Respiratory 18 18 22 Rate Blood Pressure Blood Pressure 146/61 H 111/56 L 108/53 L [Right Brachial artery] O2 Saturation 97 92 94 07/09/18 07:54 Temperature 37.0 C Heart Rate Heart Rate [ 71 Brachial] Respiratory 18 Rate Blood Pressure Blood Pressure 98/41 L [Right Brachial artery] O2 Saturation 93 Oxygen O2 Source Nasal cannula I&O (Last 24 Hrs): Intake and Output Totals x24h 07/07/18 07/08/18 07/09/18 23:59 23:59 23:59 Intake Total 2300 2157.5 Output Total 600 Balance 2300 1557.5 General: Alert, Oriented x3 HEENT: Other (Hoarse, sniffling) Neck: Supple, No JVD Neuro: Alert, Non Focal Cardiovascular: Regular rate, No murmurs Respiratory: Chest non-tender, No respiratory distress, Other (Diminished an teriorly, no wheezing or rales) Abdomen: Soft, No tenderness Extremities: No edema, Other (R elbow bandaged) - Results Results: Laboratory Results WBC 8.2 x10^3/uL (4.8-10.8) 07/09/18 04:58 RBC 3.00 10^6/uL (4.70-6.10) L 07/09/18 04:58 Hgb 9.5 g/dL (14.0-18.0) L 07/09/18 04:58 Hct 28.7 % (42.0-52.0) L 07/09/18 04:58 MCV 95.5 fL (80.0-94.0) H 07/09/18 04:58 MCH 31.8 pg (27.0-31.0) H 07/09/18 04:58 MCHC 33.3 g/dL (32.0-36.0) 07/09/18 04:58 RDW 13.9 % (12.0-15.0) 07/09/18 04:58 Plt Count 285 10^3/uL (130-450) 07/09/18 04:58 MPV 7.1 fL (7.4-11.4) L 07/09/18 04:58 Neut # (Auto) 5.6 10^3/uL (1.5-6.6) 07/09/18 04:58 Lymph # (Auto) 1.4 10^3/uL (1.5-3.5) L 07/09/18 04:58 [place] # (Auto) 1.0 10^3/uL (0.0-1.0) 07/09/18 04:58 Eos # (Auto) 0.3 10^3/uL (0.0-0.7) 07/09/18 04:58 Baso # (Auto) 0.0 10^3/uL (0.0-0.1) 07/09/18 04:58 Absolute Nucleated RBC 0.01 x10^3/uL 07/09/18 04:58 Nucleated RBC % 0.1 /100WBC 07/09/18 04:58 PT 11.7 secs (9.9-12.6) 07/08/18 16:15 INR 1.0 (0.8-1.2) 07/08/18 16:15 Sodium 139 mmol/L (135-145) 07/09/18 06:30 Potassium 4.2 mmol/L (3.5-5.0) 07/09/18 06:30 Chloride 107 mmol/L (101-111) 07/09/18 06:30 Carbon Dioxide 21 mmol/L (21-32) 07/09/18 06:30 Anion Gap 11.0 (6-13) 07/09/18 06:30 BUN 93 mg/dL (6-20) H* 07/09/18 06:30 Creatinine 5.8 mg/dL (0.6-1.2) H 07/09/18 06:30 Estimated GFR (MDRD) 9 (>89) L 07/09/18 06:30 Glucose 110 mg/dL (70-100) H 07/09/18 06:30 Calcium 8.1 mg/dL (8.5-10.3) L 07/09/18 06:30 Total Bilirubin 1.4 mg/dL (0.2-1.0) H 07/08/18 16:15 AST 302 IU/L (10-42) H 07/08/18 16:15 ALT 128 IU/L (10-60) H 07/08/18 16:15 Alkaline Phosphatase 210 IU/L (42-121) H 07/08/18 16:15 Total Creatine Kinase 5856 IU/L (22-269) H* 07/09/18 06:30 Total Protein 8.0 g/dL (6.7-8.2) 07/08/18 16:15 Albumin 3.8 g/dL (3.2-5.5) 07/08/18 16:15 Globulin 4.2 g/dL (2.1-4.2) 07/08/18 16:15 Albumin/Globulin Ratio 0.9 (1.0-2.2) L 07/08/18 16:15 Lipase 36 U/L (22-51) 07/08/18 16:15 Urine Color YELLOW 07/09/18 06:10 Urine Clarity CLEAR (CLEAR) 07/09/18 06:10 Urine pH 5.5 PH (5.0-7.5) 07/09/18 06:10 Ur Specific [place] 1.020 (1.002-1.030) 07/09/18 06:10 Urine Protein 30 mg/dL (NEGATIVE) H 07/09/18 06:10 Urine Glucose (UA) NEGATIVE mg/dL (NEGATIVE) 07/09/18 06:10 Urine Ketones NEGATIVE mg/dL (NEGATIVE) 07/09/18 06:10 Urine Occult Blood LARGE (NEGATIVE) H 07/09/18 06:10 Urine Nitrite NEGATIVE (NEGATIVE) 07/09/18 06:10 Urine Bilirubin NEGATIVE (NEGATIVE) 07/09/18 06:10 Urine Urobilinogen 0.2 (NORMAL) E.U./dL (NORMAL) 07/09/18 06:10 Ur Leukocyte Esterase NEGATIVE (NEGATIVE) 07/09/18 06:10 Urine RBC 0-5 /HPF (0-5) 07/09/18 06:10 Urine WBC 0-3 /HPF (0-3) 07/09/18 06:10 Ur Epithelial Cells FEW Transitional /HPF (<= Few) 07/08/18 16:00 Ur Squamous Epith Cells FEW Squamous (<= Few) 07/09/18 06:10 Amorphous Sediment Marked /LPF 07/09/18 06:10 Urine Bacteria Few /HPF (None Seen) 07/09/18 06:10 Urine Casts 3-5 Granular Casts /LPF3-5 Hyaline Casts /LPF 07/09/18 06:10 Urine Casts 3-5 Granular Casts /LPF3-5 Hyaline Casts /LPF 07/09/18 06:10 Ur Microscopic Review INDICATED 07/08/18 16:00 Urine Culture Comments NOT INDICATED 07/09/18 06:10 Sepsis Event Note (H) - Evaluation Current Stage of Sepsis: Sepsis Possible source of Sepsis: positive: Pulmonary - Sepsis Criteria Sepsis Criteria: Recorded Heart Rate greater than 90 bpm, WBC count greater than 12,000 or less than 4000
[2018-07-09] MEDS ORDERED: SODIUM CHLORIDE 0.65% NASAL SPRAY NAS PRN (11:34)
[2018-07-09 12:19] LABS: HB2 TOTAL 10.4 g/dL; HEMOGLOBIN A1C 0.43 g/dL; HEMOGLOBIN A1C % 5.9 % (4.6-6.2)
[2018-07-09 12:26] LABS: ALBUMIN 2.8 g/dL (3.2-5.5); BILIRUBIN,DIRECT 0.4 mg/dL (0.1-0.5); BILIRUBIN,TOTAL 0.9 mg/dL (0.2-1.0)
[2018-07-09] MEDS: GABAPENTIN 300 MG CAPSULE PO SCH ×2 (13:51→22:29)
--- NOTE | 2018-07-09 16:37 | Ultrasound Report ---
Reason: Poss syncope Procedure Date: 07/09/2018 Accession Number: [id number] / [id number] Procedure: US - Carotid Doppler Complete CPT Code: FULL RESULT: EXAM: BILATERAL CAROTID AND VERTEBRAL ARTERY DUPLEX DOPPLER ULTRASOUND: EXAM DATE: 07/09/2018 04:27 PM CLINICAL HISTORY: Possible syncope. COMPARISON: None. TECHNIQUE: Grayscale imaging, color Doppler, and duplex spectral Doppler were used to evaluate the carotid and vertebral arteries bilaterally. Static images were obtained. FINDINGS: No significant plaque is identified in the right or left common or internal carotid arteries. Normal antegrade flow is present in bilateral vertebral arteries. VELOCITIES (cm/sec): Right: CCA Mid: PSV 93.2 cm/sec. CCA Dist: PSV 82.0 cm/sec. ICA Prox: PSV 71.6 cm/sec, EDV 12.9 cm/sec. ICA Mid: PSV 86.4 cm/sec, EDV 21.2 cm/sec. ICA Dist: PSV 69.5 cm/sec, EDV 19.2 cm/sec. ECA: PSV 97.8 cm/sec. Vertebral Artery: PSV 51.9 cm/sec. RVA flow direction: xAntegrade. ICA/CCA Ratio: 0.92. Left: CCA Mid: PSV 99.0 cm/sec. CCA Dist: PSV 89.3 cm/sec. ICA Prox: PSV 76.2 cm/sec, EDV 15.6 cm/sec. ICA Mid: PSV 78.2 cm/sec, EDV 19.5 cm/sec. ICA Dist: PSV 81.7 cm/sec, EDV 20.1 cm/sec. ECA: PSV 112.2 cm/sec. Vertebral Artery: PSV 56.2 cm/sec. LVA flow direction: xAntegrade. ICA/CCA Ratio: 0.83. ICA diameter stenosis: Right: <50% by velocity and <70% by NASCET criteria. Left: <50% by velocity and <70% by NASCET criteria. IMPRESSION: 1. No significant bilateral carotid artery plaquing. 2. In the right carotid artery there are no elevated carotid artery velocities to suggest hemodynamically significant stenosis. Right ICA is moderate to severely tortuous. 3. In the left carotid artery there are no elevated carotid artery velocities to suggest hemodynamically significant stenosis. 4. Normal antegrade flow is present in bilateral vertebral arteries. General Recommendations: Stenosis =50% ICA - Follow-up ultrasound 6-12 months Stenosis <50% ICA - High Risk Patient with plaque - Follow-up ultrasound 1-2 years Normal Study but High Risk Patient - Follow-up ultrasound 3-5 years Management recommendations and diagnostic criteria are based on current IAC endorsed standards in Carotid Artery Stenosis: Grayscale and Doppler Ultrasound Diagnosis. Validated velocity measurements with angiographic measurements and velocity criteria are extrapolated from diameter data as defined by the Society of Radiologists in Ultrasound Consensus Conference Radiology 2003; 229;340-346. RADIA
[2018-07-09 16:42] LABS: ALBUMIN 2.4 g/dL (3.2-5.5); ALBUMIN/GLOBULIN RATIO 0.9 (1.0-2.2); BILIRUBIN,TOTAL 0.8 mg/dL (0.2-1.0); CREATININE 5.4 mg/dL (0.6-1.2); TOTAL PROTEIN 5.2 g/dL (6.7-8.2)
[2018-07-09] MEDS: AZITHROMYCIN 250 MG TABLET PO SCH (20:54)
[2018-07-09] MEDS: cefTRIAXone 1 GM in SODIUM CHLORIDE 0.9% MINIBAG 100 ML IV SCH (20:55)
[2018-07-09] MEDS: NYSTATIN CREAM 15 GM TUBE TOP SCH (23:49)
[2018-07-10 05:34] LABS: BASOPHILS % (AUTO) 0.3 %; EOSINOPHILS # (AUTO) 0.3 10^3/uL (0.0-0.7); EOSINOPHILS % (AUTO) 3.4 %; HGB - HEMOGLOBIN 9.8 g/dL (14.0-18.0); LYMPHOCYTES # (AUTO) 1.1 10^3/uL (1.5-3.5); LYMPHOCYTES % (AUTO) 11.6 %; MEAN CORPUSCULAR HEMOGLOBIN 31.3 pg (27.0-31.0); MEAN CORPUSCULAR HGB CONC 32.8 g/dL (32.0-36.0); MEAN CORPUSCULAR VOLUME 95.5 fL (80.0-94.0); MEAN PLATELET VOLUME 6.9 fL (7.4-11.4); MONOCYTES # (AUTO) 1.2 10^3/uL (0.0-1.0); MONOCYTES % (AUTO) 12.1 %; NEUTROPHILS # (AUTO) 7.1 10^3/uL (1.5-6.6); NEUTROPHILS % (AUTO) 72.6 %; PLT - PLATELET COUNT 340 10^3/uL (130-450); RED BLOOD COUNT 3.13 10^6/uL (4.70-6.10); RED CELL DISTRIBUTION WIDTH 13.9 % (12.0-15.0); WHITE BLOOD COUNT 9.8 x10^3/uL (4.8-10.8)
[2018-07-10 05:58] LABS: ALBUMIN 2.6 g/dL (3.2-5.5); ALBUMIN/GLOBULIN RATIO 0.8 (1.0-2.2); BILIRUBIN,TOTAL 1.1 mg/dL (0.2-1.0); CALCIUM 8.3 mg/dL (8.5-10.3); CREATININE 5.1 mg/dL (0.6-1.2); TOTAL PROTEIN 5.9 g/dL (6.7-8.2)
[2018-07-10] MEDS: GABAPENTIN 300 MG CAPSULE PO SCH ×3 (06:59→21:41)
[2018-07-10] MEDS: traMADol 50 MG TABLET PO PRN (07:03)
[2018-07-10] MEDS: SODIUM CHLORIDE 0.9% 1,000 ML IV SCH ×3 (07:04→18:14)
[2018-07-10] MEDS: SODIUM CHLORIDE FLUSH 0.9% 10 ML SYRINGE IVP SCH ×3 (07:05→17:16)
--- NOTE | 2018-07-10 08:10 | PROVIDER PROGRESS NOTE ---
Assessment/Plan - Problem List (1) Acute kidney injury due to trauma Assessment/Plan: Slowly improving creat from 5.8 (max) to 5.1 this a.m. His GFR is still severely decreased at 11. Continue iv hydration and will increase saline rate from 100 cc/hr to 125cc/hr, since he has normal LV systolic function. No iv albumen needed since BP is not hypotensive. Monitor daily BUN/creat. Avoid nephrotoxic agents; he is off his home Metformin, HCTZ and Lisinopril. Possible DCh home in 2-3 days. (2) Rhabdomyolysis Qualifiers: Rhabdomyolysis type: traumatic Encounter type: initial encounter Qualified Code(s): T79.6XXA - Traumatic ischemia of muscle, initial encounter Assessment/Plan: Improving total serum CK at each lab draw, but still elevated >2000. Continue iv hydration. (3) Fall at home Qualifiers: Encounter type: sequela Qualified Code(s): W19.XXXS - Unspecified fall, sequela; Y92.009 - Unspecified place in unspecified non-institutional (private) residence as the place of occurrence of the external cause Assessment/Plan: As I put together the information from the patient's recollection and his labs, low BP yesterday and his imaging; he probably caught the respiratory infection from his visiting family members (ex- and great-grandson), developed a fever, was delirious and dehydrated, cannot remember getting out of bed and while walking he fell 3 times, onto a coffee table and the floor, breaking his rib and abrading his elbow plus bruising his right hip. It is unclear how long he was on the ground. He did eventually arise from the floor and went back to bed and slept. It was several days later that the pain was so bad that he went to his PCP, who found the DAVID on labs. His work-up here showed troponins were neg, ruling out [place]. Carotid Dopplers show no significant carotid obstruction, and Echo shows no significant structural heart disease. Will stop orthostatic VS checks. Will stop telemetry. Continue iv hydration, treatment of that infection and management of rib fracture pain. Will start with a PT eval, since BP is no longer low (like yesterday) and he is not orthostatic. BP is not elevated, however to restart any BP meds. (4) Community acquired bacterial pneumonia Assessment/Plan: No blood cultures were done or sputum produced for a culture. He is on Day #2 of po Zithromax and iv Ceftriaxone. Continue with Mucinex, empiric antibiotics, then transition to po at [facility]. Add Florastor while on antibiotics. (5) Rib fracture Qualifiers: Encounter type: subsequent encounter Rib fracture type: single rib Fracture type: closed Laterality: right Assessment/Plan: Patient is tolerating Incentive Spirometry q2h while awake, using the current pain medication strategy. He is also getting PEP respiratory management qid. Continue the above and plan Incentive Spirometry at [facility], to continue at home. (6) Elevated LFTs Assessment/Plan: Improving LFTs with improvement of renal function, suggesting that he had shock liver from hypotension or hepato-renal syndrome or a liver contusion (sustained during his falls onto his right side). No imaging was done of the abdomen to evaluate the liver or kidneys, however. No evidence of left heart failure or cor pulmonale by Echo, to suggest passive liver congestion. Avoid hepatoxins; patient is off his Simvistatin while here. Monitor daily LFTs. (7) Anemia Assessment/Plan: I suspect this is due to hemodilution, since his I's and O's have been (+) approx. 2L for the past 2 days (4L positive fluid balance). Will check iron panel, B12 and Folate and replace if low. (8) Diabetes mellitus, type II Assessment/Plan: His HbA1c was 5.9 indicating excellent control of serum glu with Metformin only, at home. Metformin is stopped due to DAVID. Will add a carb-controlled diet to his cardiac diet order, and add fingerstick glu checks and Regular Insulin ss coverage. - Current Meds Current Meds: Current Medications Generic Name Dose Route Start Last Admin Trade Name Freq PRN Reason Stop Dose Admin Aspirin 81 mg 07/09/18 09:00 07/09/18 10:14 [facility] [place] Aspirin PO 81 mg DAILY MARCELINA Administration Azithromycin 250 mg 07/09/18 21:00 07/09/18 20:54 Zithromax PO 07/12/18 21:01 250 mg Q24H MARCELINA Administration Gabapentin 300 mg 07/09/18 14:00 07/10/18 06:59 Neurontin PO 300 mg TID MARCELINA Administration Ceftriaxone Sodium 1 gm/ 100 mls @ 200 mls/hr 07/08/18 21:00 07/09/18 21:40 Sodium Chloride IV Infused Q24H MARCELINA Infusion Sodium Chloride 1,000 mls @ 100 mls/hr 07/09/18 08:00 07/10/18 07:04 Normal Saline 0.9% IV 100 mls/hr .Q10H MARCELINA Administration Nystatin 1 applic 07/09/18 21:00 07/09/18 23:49 Mycostatin Cream TOP Not Given BID MARCELINA Polyethylene Glycol 17 gm 07/09/18 09:00 07/09/18 10:13 Miralax PO 17 gm DAILY MARCELINA Administration Sodium Chloride 10 ml 07/09/18 01:00 07/10/18 07:05 Normal Saline Flush 0.9% IVP Not Given 0100,0900,1700 MARCELINA Sodium Chloride 2 sprays 07/09/18 11:34 07/09/18 13:55 [place] ODILIA 1 spr Q4HR PRN Administration Nasal Congestion Tramadol HCl 50 mg 07/08/18 20:07 07/10/18 07:03 Ultram PO 50 mg Q6H PRN Administration PAIN - Lab Result Fish Bone Diagrams: 07/10/18 04:59 07/10/18 04:59 - Additional Planning My Orders: My Active Orders 07/09/18 09:21 Acetaminophen [Tylenol] 650 mg PO Q4HR PRN 07/09/18 10:15 PEP [PEP Therapy] [RC] QID 07/09/18 11:26 Echo Transthoracic Complete [ECHO] Routine 07/09/18 11:34 Sodium Chloride 0.65% [[place]] 2 sprays ODILIA Q4HR PRN 07/09/18 14:00 Gabapentin [Neurontin] 300 mg PO TID 07/09/18 21:00 Nystatin Cream [Mycostatin Cream] 1 applic TOP BID 07/10/18 Evaluate and Treat PT [PT] Routine 07/10/18 09:00 Aspirin EC [Ecotrin] 80 mg PO DAILY 07/11/18 05:00 CMP [COMPREHENSIVE METABOLIC PANEL] [CHEM] DAILYLAB 07/12/18 05:00 CMP [COMPREHENSIVE METABOLIC PANEL] [CHEM] DAILYLAB 07/13/18 05:00 CMP [COMPREHENSIVE METABOLIC PANEL] [CHEM] DAILYLAB Subjective - Subjective Patient Reports: Feeling Better, Resting Comfortably, Other (Able to expectorate sputum now, and he swallows it.) Objective Vital Signs: Vital Signs - 24 hr 07/09/18 07/09/18 07/09/18 10:19 11:10 12:53 Temperature 36.5 C Heart Rate [ 73 71 Brachial] Heart Rate [ Sitting (After 1 Minute)] Heart Rate [ Standing (After 1 Minute)] Heart Rate [ Supine] Respiratory 18 18 18 Rate Blood Pressure 88/65 L 114/54 L [Right Brachial artery] Blood Pressure [Sitting (After 1 Minute)] Blood Pressure [Standing ( After 1 Minute) ] Blood Pressure [Supine] O2 Saturation 97 94 92 07/09/18 07/09/18 07/09/18 15:42 18:00 21:00 Temperature 36.8 C 37.3 C Heart Rate [ 71 81 Brachial] Heart Rate [ 85 Sitting (After 1 Minute)] Heart Rate [ 90 Standing (After 1 Minute)] Heart Rate [ 83 Supine] Respiratory 18 18 Rate Blood Pressure 107/59 L 116/55 L [Right Brachial artery] Blood Pressure 132/50 H [Sitting (After 1 Minute)] Blood Pressure 120/52 L [Standing ( After 1 Minute) ] Blood Pressure 148/50 H [Supine] O2 Saturation 97 95 07/09/18 07/10/18 07/10/18 23:45 04:05 07:44 Temperature 37.3 C 37.2 C 36.8 C Heart Rate [ 81 83 79 Brachial] Heart Rate [ 80 Sitting (After 1 Minute)] Heart Rate [ 84 Standing (After 1 Minute)] Heart Rate [ 83 Supine] Respiratory 16 16 16 Rate Blood Pressure 122/57 L 113/52 L 123/57 L [Right Brachial artery] Blood Pressure 127/67 [Sitting (After 1 Minute)] Blood Pressure 129/84 H [Standing ( After 1 Minute) ] Blood Pressure 113/52 L [Supine] O2 Saturation 94 94 92 Oxygen O2 Source Nasal cannula I&O (Last 24 Hrs): Intake and Output Totals x24h 07/08/18 07/09/18 07/10/18 23:59 23:59 23:59 Intake Total 2300 4465.0 1200 Output Total 2600 1200 Balance 2300 1865.0 0 General: Alert, Oriented x3 HEENT: Mucous membr. moist/pink Neck: Supple, No JVD Neuro: Alert, Non Focal Cardiovascular: Regular rate, No murmurs Respiratory: No respiratory distress, Other (Diminished anterior breath sounds, no rales or wheezes.) Abdomen: Normal bowel sounds, Soft, No tenderness Extremities: No edema - Results Results: Laboratory Results WBC 9.8 x10^3/uL (4.8-10.8) 07/10/18 04:59 RBC 3.13 10^6/uL (4.70-6.10) L 07/10/18 04:59 Hgb 9.8 g/dL (14.0-18.0) L 07/10/18 04:59 Hct 29.9 % (42.0-52.0) L 07/10/18 04:59 MCV 95.5 fL (80.0-94.0) H 07/10/18 04:59 MCH 31.3 pg (27.0-31.0) H 07/10/18 04:59 MCHC 32.8 g/dL (32.0-36.0) 07/10/18 04:59 RDW 13.9 % (12.0-15.0) 07/10/18 04:59 Plt Count 340 10^3/uL (130-450) 07/10/18 04:59 MPV 6.9 fL (7.4-11.4) L 07/10/18 04:59 Neut # (Auto) 7.1 10^3/uL (1.5-6.6) H 07/10/18 04:59 Lymph # (Auto) 1.1 10^3/uL (1.5-3.5) L 07/10/18 04:59 [place] # (Auto) 1.2 10^3/uL (0.0-1.0) H 07/10/18 04:59 Eos # (Auto) 0.3 10^3/uL (0.0-0.7) 07/10/18 04:59 Baso # (Auto) 0.0 10^3/uL (0.0-0.1) 07/10/18 04:59 Absolute Nucleated RBC 0.00 x10^3/uL 07/10/18 04:59 Nucleated RBC % 0.0 /100WBC 07/10/18 04:59 PT 11.7 secs (9.9-12.6) 07/08/18 16:15 INR 1.0 (0.8-1.2) 07/08/18 16:15 Sodium 140 mmol/L (135-145) 07/10/18 04:59 Potassium 4.6 mmol/L (3.5-5.0) 07/10/18 04:59 Chloride 109 mmol/L (101-111) 07/10/18 04:59 Carbon Dioxide 21 mmol/L (21-32) 07/10/18 04:59 Anion Gap 10.0 (6-13) 07/10/18 04:59 BUN 85 mg/dL (6-20) H* 07/10/18 04:59 Creatinine 5.1 mg/dL (0.6-1.2) H 07/10/18 04:59 Estimated GFR (MDRD) 11 (>89) L 07/10/18 04:59 Glucose 123 mg/dL (70-100) H 07/10/18 04:59 Glycated Hemoglobin 5.9 % (4.6-6.2) 07/09/18 11:55 Estim Average Glucose 123 (70-100) H 07/09/18 11:55 Calcium 8.3 mg/dL (8.5-10.3) L 07/10/18 04:59 Total Bilirubin 1.1 mg/dL (0.2-1.0) H 07/10/18 04:59 Direct Bilirubin 0.4 mg/dL (0.1-0.5) 07/09/18 11:55 AST 145 IU/L (10-42) H 07/10/18 04:59 ALT 94 IU/L (10-60) H 07/10/18 04:59 Alkaline Phosphatase 222 IU/L (42-121) H 07/10/18 04:59 Total Creatine Kinase 3902 IU/L (22-269) H* 07/09/18 16:15 Troponin I 0.04 ng/mL (<0.49) 07/09/18 16:15 B-Natriuretic Peptide 134 pg/mL (5-100) H 07/09/18 11:55 Total Protein 5.9 g/dL (6.7-8.2) L 07/10/18 04:59 Albumin 2.6 g/dL (3.2-5.5) L 07/10/18 04:59 Globulin 3.3 g/dL (2.1-4.2) 07/10/18 04:59 Albumin/Globulin Ratio 0.8 (1.0-2.2) L 07/10/18 04:59 Lipase 36 U/L (22-51) 07/08/18 16:15 Urine Color YELLOW 07/09/18 06:10 Urine Clarity CLEAR (CLEAR) 07/09/18 06:10 Urine pH 5.5 PH (5.0-7.5) 07/09/18 06:10 Ur Specific [place] 1.020 (1.002-1.030) 07/09/18 06:10 Urine Protein 30 mg/dL (NEGATIVE) H 07/09/18 06:10 Urine Glucose (UA) NEGATIVE mg/dL (NEGATIVE) 07/09/18 06:10 Urine Ketones NEGATIVE mg/dL (NEGATIVE) 07/09/18 06:10 Urine Occult Blood LARGE (NEGATIVE) H 07/09/18 06:10 Urine Nitrite NEGATIVE (NEGATIVE) 07/09/18 06:10 Urine Bilirubin NEGATIVE (NEGATIVE) 07/09/18 06:10 Urine Urobilinogen 0.2 (NORMAL) E.U./dL (NORMAL) 07/09/18 06:10 Ur Leukocyte Esterase NEGATIVE (NEGATIVE) 07/09/18 06:10 Urine RBC 0-5 /HPF (0-5) 07/09/18 06:10 Urine WBC 0-3 /HPF (0-3) 07/09/18 06:10 Ur Epithelial Cells FEW Transitional /HPF (<= Few) 07/08/18 16:00 Ur Squamous Epith Cells FEW Squamous (<= Few) 07/09/18 06:10 Amorphous Sediment Marked /LPF 07/09/18 06:10 Urine Bacteria Few /HPF (None Seen) 07/09/18 06:10 Urine Casts 3-5 Granular Casts /LPF3-5 Hyaline Casts /LPF 07/09/18 06:10 Urine Casts 3-5 Granular Casts /LPF3-5 Hyaline Casts /LPF 07/09/18 06:10 Ur Microscopic Review INDICATED 07/08/18 16:00 Urine Culture Comments NOT INDICATED 07/09/18 06:10 Sepsis Event Note (H) - Evaluation Current Stage of Sepsis: Sepsis Possible source of Sepsis: positive: Pulmonary - Sepsis Criteria Sepsis Criteria: Recorded Heart Rate greater than 90 bpm, WBC count greater than 12,000 or less than 4000 ABX Reporting Has patient been on IV antibiotics over the past 48 hours?: Yes
[2018-07-10] MEDS ORDERED: ASPIRIN EC 81 MG TABLET PO SCH (09:00)
[2018-07-10] MEDS: POLYETHYLENE GLYCOL 3350 17 GM PACKET PO SCH (09:53)
[2018-07-10] MEDS: NYSTATIN CREAM 15 GM TUBE TOP SCH ×2 (09:54→22:13)
[2018-07-10 10:10] LABS: % IRON SATURATION 13 % (20-50); IRON 24 ug/dL (45-182); TOTAL IRON BINDING CAPACITY 185 ug/dL (250-450); TRANSFERRIN 132 mg/dL (180-329)
[2018-07-10 11:10] LABS: FOLATE 9.45 ng/mL (5.90 - >24.8)
[2018-07-10] MEDS: INSULIN ASPART 300 UNIT/3 ML PEN SUBQ SCH ×3 (13:52→21:47)
[2018-07-10] MEDS: AZITHROMYCIN 250 MG TABLET PO SCH (21:41)
[2018-07-10] MEDS: cefTRIAXone 1 GM in SODIUM CHLORIDE 0.9% MINIBAG 100 ML IV SCH (21:41)
[2018-07-11] MEDS: SODIUM CHLORIDE FLUSH 0.9% 10 ML SYRINGE IVP SCH ×3 (02:16→19:12)
[2018-07-11] MEDS: SODIUM CHLORIDE 0.9% 1,000 ML IV SCH ×3 (02:17→19:11)
[2018-07-11] MEDS: traMADol 50 MG TABLET PO PRN (04:10)
[2018-07-11] MEDS: GABAPENTIN 300 MG CAPSULE PO SCH ×3 (05:04→21:34)
[2018-07-11 05:14] LABS: BASOPHILS % (AUTO) 0.4 %; EOSINOPHILS # (AUTO) 0.5 10^3/uL (0.0-0.7); EOSINOPHILS % (AUTO) 5.2 %; HGB - HEMOGLOBIN 9.4 g/dL (14.0-18.0); LYMPHOCYTES # (AUTO) 1.3 10^3/uL (1.5-3.5); LYMPHOCYTES % (AUTO) 14.3 %; MEAN CORPUSCULAR HEMOGLOBIN 33.6 pg (27.0-31.0); MEAN CORPUSCULAR HGB CONC 35.6 g/dL (32.0-36.0); MEAN CORPUSCULAR VOLUME 94.4 fL (80.0-94.0); MEAN PLATELET VOLUME 6.8 fL (7.4-11.4); MONOCYTES # (AUTO) 0.9 10^3/uL (0.0-1.0); MONOCYTES % (AUTO) 10.3 %; NEUTROPHILS # (AUTO) 6.3 10^3/uL (1.5-6.6); NEUTROPHILS % (AUTO) 69.8 %; PLT - PLATELET COUNT 334 10^3/uL (130-450); RED BLOOD COUNT 2.78 10^6/uL (4.70-6.10); RED CELL DISTRIBUTION WIDTH 13.5 % (12.0-15.0); WHITE BLOOD COUNT 9.1 x10^3/uL (4.8-10.8)
[2018-07-11 05:32] LABS: ALBUMIN 2.5 g/dL (3.2-5.5); ALBUMIN/GLOBULIN RATIO 0.9 (1.0-2.2); BILIRUBIN,TOTAL 0.7 mg/dL (0.2-1.0); CALCIUM 8.4 mg/dL (8.5-10.3); TOTAL PROTEIN 5.4 g/dL (6.7-8.2)
[2018-07-11] MEDS: INSULIN ASPART 300 UNIT/3 ML PEN SUBQ SCH ×4 (07:38→21:40)
--- NOTE | 2018-07-11 08:01 | PROVIDER PROGRESS NOTE ---
Assessment/Plan - Problem List (1) DAVID (acute kidney injury) Assessment/Plan: BUN/creat improving with iv hydration and decline in CK. GFR is still poor at 15. Fluid balance was (+) 1600 yesterday and (+)2L the previous 2 days. Will check CXR for vascular congestion and to evaluate the pneumonia. Continue iv fluids at 125/hr. Monitor renal function daily. [facility] Wed this week. (2) Rhabdomyolysis Qualifiers: Rhabdomyolysis type: traumatic Encounter type: initial encounter Qualified Code(s): T79.6XXA - Traumatic ischemia of muscle, initial encounter Assessment/Plan: CK declining daily. Continue iv fluids. Monitor CK daily. (3) Fall at home Qualifiers: Encounter type: sequela Qualified Code(s): W19.XXXS - Unspecified fall, sequela; Y92.009 - Unspecified place in unspecified non-institutional (private) residence as the place of occurrence of the external cause Assessment/Plan: As per yesterday's note: he probably fell at home due to orthostasis, was dehydrated, febrile and possibly delirious from infection. No further orthostasis, since hypotension on first day was treated with fluids and he is off his home meds of Lisinopril and HCTZ. His BP is still not elevated to need a restart of any HTN meds. The patient lives alone and would benefit from a LifeAlert. I will ask Social Work to meet with patient. (4) Community acquired bacterial pneumonia Assessment/Plan: CXR today shows resolution of pulmonary vascular congestion and improvement of bibasilar infiltrates, and only small residual bilateral pleural effusions leo in. Continue empiric po Zithromax and iv Ceftriaxone, since there were no cultures taken of sputum or blood at admission. Today is day #3 of a 7 day course planned. (5) Rib fracture Qualifiers: Encounter type: subsequent encounter Rib fracture type: single rib Fracture type: closed Laterality: right Assessment/Plan: Continue pain control, Incentive Spirometer and PEP management. Continue ambulation with PT. (6) Elevated LFTs Assessment/Plan: Improving daily. I suspect he had shock liver from hypotension. (7) Anemia Qualifiers: Anemia type: iron deficiency Assessment/Plan: B12 and Folate levels are adequate, but low Iron stores. Will start oral Iron replacement and discuss constipation management. (8) Diabetes mellitus, type II Assessment/Plan: Continue carb-controlled diet, fingerstick glu checks and ss Insulin coverage. Pt is off his Metformin due to DAVID. (9) Hx of headache Assessment/Plan: His Gabapentin is ordered. - Current Meds Current Meds: Current Medications Generic Name Dose Route Start Last Admin Trade Name Freq PRN Reason Stop Dose Admin Azithromycin 250 mg 07/09/18 21:00 07/10/18 21:41 Zithromax PO 07/12/18 21:01 250 mg Q24H MARCELINA Administration Gabapentin 300 mg 07/09/18 14:00 07/11/18 05:04 Neurontin PO 300 mg TID MARCELINA Administration Ceftriaxone Sodium 1 gm/ 100 mls @ 200 mls/hr 07/08/18 21:00 07/10/18 22:13 Sodium Chloride IV Infused Q24H MARCELINA Infusion Sodium Chloride 1,000 mls @ 125 mls/hr 07/10/18 09:02 07/11/18 02:17 Normal Saline 0.9% IV 125 mls/hr .Q8H MARCELINA Administration Insulin Aspart 1 - 5 unit 07/10/18 12:00 07/11/18 07:38 Novolog SUBQ Not Given 0800,1200,1700,2100 [facility] Protocol Nystatin 1 applic 07/09/18 21:00 07/10/18 22:13 Mycostatin Cream TOP 1 inch BID MARCELINA Administration Polyethylene Glycol 17 gm 07/09/18 09:00 07/10/18 09:53 Miralax PO Not Given DAILY MARCELINA Sodium Chloride 10 ml 07/09/18 01:00 07/11/18 02:16 Normal Saline Flush 0.9% IVP Not Given 0100,0900,1700 MARCELINA Sodium Chloride 2 sprays 07/09/18 11:34 07/09/18 13:55 [place] ODILIA 1 spr Q4HR PRN Administration Nasal Congestion Tramadol HCl 50 mg 07/08/18 20:07 07/11/18 04:10 Ultram PO 50 mg Q6H PRN Administration PAIN - Lab Result Fish Bone Diagrams: 07/11/18 04:47 07/11/18 04:47 - Additional Planning My Orders: My Active Orders 07/10/18 09:02 Sodium Chloride 0.9% [Normal Saline 0.9%] 1,000 ml IV 125 mls/hr 07/10/18 09:18 Blood Glucose Checks - Eating [RC] 0800,1200,1700,2100 Initiate Hypoglycemia Protocol [RC] .protocol 07/10/18 12:00 Insulin Aspart [NovoLOG] 1 - 5 unit SUBQ 0800,1200,1700,2100 07/10/18 14:33 PEP Therapy [RC] QID 07/11/18 09:00 Aspirin EC [Ecotrin] 81 mg PO DAILY Docusate Sodium 250Mg Capsule [Colace 250Mg Capsule] 250 - 500 mg PO DAILY Senna [Senokot] 8.6 - 17.2 mg PO DAILY 07/12/18 05:00 CBC - COMP BLD CT W/AUTO DIFF [HEME] Routine CK- CREATINE KINASE [CHEM] Routine CMP [COMPREHENSIVE METABOLIC PANEL] [CHEM] DAILYLAB 07/13/18 05:00 CMP [COMPREHENSIVE METABOLIC PANEL] [CHEM] DAILYLAB Subjective - Subjective Patient Reports: Feeling Better, Resting Comfortably Nursing Reports: Other (Patient started PT yesterday. He was hypoxic at rest 88% sat on R.A. and ambulated with O2 at 4L nc. He was able to walk 150 feet and needed a walker.) Objective Vital Signs: Vital Signs - 24 hr 07/10/18 07/10/18 07/10/18 09:15 10:10 16:11 Temperature 37.0 C Heart Rate [ 79 Brachial] Heart Rate [ 88 Sitting (After 1 Minute)] Heart Rate [ 88 Sitting] Heart Rate [ 91 Standing (After 1 Minute)] Heart Rate [ 85 80 Supine] Respiratory 16 Rate Blood Pressure 130/65 [Right Brachial artery] Blood Pressure 119/56 L [Sitting (After 1 Minute)] Blood Pressure 120/56 L [Sitting] Blood Pressure 113/53 L [Standing ( After 1 Minute) ] Blood Pressure 121/56 L 123/55 L [Supine] O2 Saturation 92 O2 Saturation [ 94 With Activity] O2 Saturation [ 88 L Without Activity] 07/11/18 07/11/18 07/11/18 00:09 00:30 00:35 Temperature 37.5 C Heart Rate [ 81 Brachial] Heart Rate [ Sitting (After 1 Minute)] Heart Rate [ Sitting] Heart Rate [ Standing (After 1 Minute)] Heart Rate [ Supine] Respiratory 17 Rate Blood Pressure 131/61 H [Right Brachial artery] Blood Pressure [Sitting (After 1 Minute)] Blood Pressure [Sitting] Blood Pressure [Standing ( After 1 Minute) ] Blood Pressure [Supine] O2 Saturation 90 L 89 L 93 O2 Saturation [ With Activity] O2 Saturation [ Without Activity] 07/11/18 07:25 Temperature 36.7 C Heart Rate [ 72 Brachial] Heart Rate [ Sitting (After 1 Minute)] Heart Rate [ Sitting] Heart Rate [ Standing (After 1 Minute)] Heart Rate [ Supine] Respiratory 15 Rate Blood Pressure 120/56 L [Right Brachial artery] Blood Pressure [Sitting (After 1 Minute)] Blood Pressure [Sitting] Blood Pressure [Standing ( After 1 Minute) ] Blood Pressure [Supine] O2 Saturation 97 O2 Saturation [ With Activity] O2 Saturation [ Without Activity] Oxygen O2 Source [With Activity] Nasal cannula O2 Source [Without Activity] Nasal cannula O2 Source Room air I&O (Last 24 Hrs): Intake and Output Totals x24h 07/09/18 07/10/18 07/11/18 23:59 23:59 23:59 Intake Total 4465.0 4940 1090 Output Total 2600 3250 Balance 1865.0 1690 1090 General: Alert, Oriented x3 HEENT: Atraumatic, Mucous membr. moist/pink Neck: Supple, No JVD Neuro: Alert, Non Focal Cardiovascular: Regular rate, No murmurs Respiratory: Other (Fine R base crackles, distant breath sounds) Abdomen: Soft Extremities: No edema, Other (R elbow bandaged) - Results Results: Laboratory Results WBC 9.1 x10^3/uL (4.8-10.8) 07/11/18 04:47 RBC 2.78 10^6/uL (4.70-6.10) L 07/11/18 04:47 Hgb 9.4 g/dL (14.0-18.0) L 07/11/18 04:47 Hct 26.3 % (42.0-52.0) L 07/11/18 04:47 MCV 94.4 fL (80.0-94.0) H 07/11/18 04:47 MCH 33.6 pg (27.0-31.0) H 07/11/18 04:47 MCHC 35.6 g/dL (32.0-36.0) 07/11/18 04:47 RDW 13.5 % (12.0-15.0) 07/11/18 04:47 Plt Count 334 10^3/uL (130-450) 07/11/18 04:47 MPV 6.8 fL (7.4-11.4) L 07/11/18 04:47 Neut # (Auto) 6.3 10^3/uL (1.5-6.6) 07/11/18 04:47 Lymph # (Auto) 1.3 10^3/uL (1.5-3.5) L 07/11/18 04:47 [place] # (Auto) 0.9 10^3/uL (0.0-1.0) 07/11/18 04:47 Eos # (Auto) 0.5 10^3/uL (0.0-0.7) 07/11/18 04:47 Baso # (Auto) 0.0 10^3/uL (0.0-0.1) 07/11/18 04:47 Absolute Nucleated RBC 0.00 x10^3/uL 07/11/18 04:47 Nucleated RBC % 0.0 /100WBC 07/11/18 04:47 PT 11.7 secs (9.9-12.6) 07/08/18 16:15 INR 1.0 (0.8-1.2) 07/08/18 16:15 Sodium 141 mmol/L (135-145) 07/11/18 04:47 Potassium 4.2 mmol/L (3.5-5.0) 07/11/18 04:47 Chloride 109 mmol/L (101-111) 07/11/18 04:47 Carbon Dioxide 21 mmol/L (21-32) 07/11/18 04:47 Anion Gap 11.0 (6-13) 07/11/18 04:47 BUN 72 mg/dL (6-20) H 07/11/18 04:47 Creatinine 4.0 mg/dL (0.6-1.2) H 07/11/18 04:47 Estimated GFR (MDRD) 15 (>89) L 07/11/18 04:47 Glucose 141 mg/dL (70-100) H 07/11/18 04:47 POC Whole Bld Glucose 114 mg/dL (70 - 100) H 07/11/18 07:34 Glycated Hemoglobin 5.9 % (4.6-6.2) 07/09/18 11:55 Estim Average Glucose 123 (70-100) H 07/09/18 11:55 Calcium 8.4 mg/dL (8.5-10.3) L 07/11/18 04:47 Iron 24 ug/dL (45-182) L 07/10/18 08:47 TIBC 185 ug/dL (250-450) L 07/10/18 08:47 % Saturation 13 % (20-50) L 07/10/18 08:47 Transferrin 132 mg/dL (180-329) L 07/10/18 08:47 Total Bilirubin 0.7 mg/dL (0.2-1.0) 07/11/18 04:47 Direct Bilirubin 0.4 mg/dL (0.1-0.5) 07/09/18 11:55 AST 99 IU/L (10-42) H 07/11/18 04:47 ALT 82 IU/L (10-60) H 07/11/18 04:47 Alkaline Phosphatase 218 IU/L (42-121) H 07/11/18 04:47 Total Creatine Kinase 1195 IU/L (22-269) H* 07/11/18 04:47 Troponin I 0.04 ng/mL (<0.49) 07/09/18 16:15 B-Natriuretic Peptide 134 pg/mL (5-100) H 07/09/18 11:55 Total Protein 5.4 g/dL (6.7-8.2) L 07/11/18 04:47 Albumin 2.5 g/dL (3.2-5.5) L 07/11/18 04:47 Globulin 2.9 g/dL (2.1-4.2) 07/11/18 04:47 Albumin/Globulin Ratio 0.9 (1.0-2.2) L 07/11/18 04:47 Lipase 36 U/L (22-51) 07/08/18 16:15 Vitamin B12 266 pg/mL (180-914) 07/10/18 08:47 Folate 9.45 ng/mL (5.90 - >24.8) 07/10/18 08:47 Urine Color YELLOW 07/09/18 06:10 Urine Clarity CLEAR (CLEAR) 07/09/18 06:10 Urine pH 5.5 PH (5.0-7.5) 07/09/18 06:10 Ur Specific [place] 1.020 (1.002-1.030) 07/09/18 06:10 Urine Protein 30 mg/dL (NEGATIVE) H 07/09/18 06:10 Urine Glucose (UA) NEGATIVE mg/dL (NEGATIVE) 07/09/18 06:10 Urine Ketones NEGATIVE mg/dL (NEGATIVE) 07/09/18 06:10 Urine Occult Blood LARGE (NEGATIVE) H 07/09/18 06:10 Urine Nitrite NEGATIVE (NEGATIVE) 07/09/18 06:10 Urine Bilirubin NEGATIVE (NEGATIVE) 07/09/18 06:10 Urine Urobilinogen 0.2 (NORMAL) E.U./dL (NORMAL) 07/09/18 06:10 Ur Leukocyte Esterase NEGATIVE (NEGATIVE) 07/09/18 06:10 Urine RBC 0-5 /HPF (0-5) 07/09/18 06:10 Urine WBC 0-3 /HPF (0-3) 07/09/18 06:10 Ur Epithelial Cells FEW Transitional /HPF (<= Few) 07/08/18 16:00 Ur Squamous Epith Cells FEW Squamous (<= Few) 07/09/18 06:10 Amorphous Sediment Marked /LPF 07/09/18 06:10 Urine Bacteria Few /HPF (None Seen) 07/09/18 06:10 Urine Casts 3-5 Granular Casts /LPF3-5 Hyaline Casts /LPF 07/09/18 06:10 Urine Casts 3-5 Granular Casts /LPF3-5 Hyaline Casts /LPF 07/09/18 06:10 Ur Microscopic Review INDICATED 07/08/18 16:00 Urine Culture Comments NOT INDICATED 07/09/18 06:10 Sepsis Event Note (H) - Evaluation Current Stage of Sepsis: Sepsis Possible source of Sepsis: positive: Pulmonary - Sepsis Criteria Sepsis Criteria: Recorded Heart Rate greater than 90 bpm, WBC count greater than 12,000 or less than 4000 ABX Reporting Has patient been on IV antibiotics over the past 48 hours?: Yes
[2018-07-11] MEDS: ASPIRIN EC 81 MG TABLET PO SCH (09:11)
[2018-07-11] MEDS: POLYETHYLENE GLYCOL 3350 17 GM PACKET PO SCH (09:11)
[2018-07-11] MEDS: SENNA 8.6 MG TABLET PO SCH (09:11)
[2018-07-11] MEDS: DOCUSATE SODIUM 250 MG CAPSULE PO SCH (09:11)
[2018-07-11] MEDS: FERROUS GLUCONATE 324 MG TABLET PO SCH (09:11)
[2018-07-11] MEDS: NYSTATIN CREAM 15 GM TUBE TOP SCH ×2 (09:14→21:35)
--- NOTE | 2018-07-11 13:10 | XRAY Report ---
Reason: F/U pneumonia and congestion Procedure Date: 07/11/2018 Accession Number: [id number] / [id number] Procedure: XR - Chest 1 View X-Ray CPT Code: 28921 FULL RESULT: EXAM: CHEST RADIOGRAPHY EXAM DATE: 07/11/2018 11:38 AM. CLINICAL HISTORY: F/U pneumonia and congestion. COMPARISON: CHEST 1 VIEW 07/09/2018 7:15 AM. TECHNIQUE: 1 view. FINDINGS: Lungs/Pleura: Small bilateral pleural effusions. Mediastinum: Within exam limitations, the cardiomediastinal contour is normal. Other: None. IMPRESSION: 1. Recent pulmonary vascular congestion has essentially resolved. 2. Small residual pleural effusions. RADIA
[2018-07-11] MEDS ORDERED: SODIUM CHLORIDE 0.9% 1,000 ML IV ONE (18:44)
[2018-07-11] MEDS: cefTRIAXone 1 GM in SODIUM CHLORIDE 0.9% MINIBAG 100 ML IV SCH (21:32)
[2018-07-11] MEDS: AZITHROMYCIN 250 MG TABLET PO SCH (21:34)
[2018-07-12] MEDS: SODIUM CHLORIDE FLUSH 0.9% 10 ML SYRINGE IVP SCH ×3 (01:44→18:56)
[2018-07-12] MEDS: SODIUM CHLORIDE FLUSH 0.9% 10 ML SYRINGE IVP PRN ×3 (04:01→22:15)
[2018-07-12] MEDS: SODIUM CHLORIDE 0.9% 1,000 ML IV SCH ×2 (04:01→12:08)
[2018-07-12 05:19] LABS: BASOPHILS % (AUTO) 0.4 %; EOSINOPHILS # (AUTO) 0.5 10^3/uL (0.0-0.7); EOSINOPHILS % (AUTO) 5.1 %; HGB - HEMOGLOBIN 8.9 g/dL (14.0-18.0); LYMPHOCYTES # (AUTO) 1.3 10^3/uL (1.5-3.5); LYMPHOCYTES % (AUTO) 13.9 %; MEAN CORPUSCULAR HEMOGLOBIN 31.3 pg (27.0-31.0); MEAN CORPUSCULAR HGB CONC 33.1 g/dL (32.0-36.0); MEAN CORPUSCULAR VOLUME 94.5 fL (80.0-94.0); MEAN PLATELET VOLUME 6.7 fL (7.4-11.4); MONOCYTES % (AUTO) 10.4 %; NEUTROPHILS # (AUTO) 6.8 10^3/uL (1.5-6.6); NEUTROPHILS % (AUTO) 70.2 %; PLT - PLATELET COUNT 387 10^3/uL (130-450); RED BLOOD COUNT 2.86 10^6/uL (4.70-6.10); RED CELL DISTRIBUTION WIDTH 13.8 % (12.0-15.0); WHITE BLOOD COUNT 9.7 x10^3/uL (4.8-10.8)
[2018-07-12 05:30] LABS: ALBUMIN 2.4 g/dL (3.2-5.5); ALBUMIN/GLOBULIN RATIO 0.8 (1.0-2.2); BILIRUBIN,TOTAL 0.9 mg/dL (0.2-1.0); CALCIUM 8.5 mg/dL (8.5-10.3); CREATININE 2.9 mg/dL (0.6-1.2); TOTAL PROTEIN 5.4 g/dL (6.7-8.2)
[2018-07-12] MEDS: GABAPENTIN 300 MG CAPSULE PO SCH ×3 (05:41→21:28)
[2018-07-12 05:53] LABS: PLATELET ESTIMATE, MANUAL NORMAL (130-450,000) (NORMAL); RBC MORPHOLOGY (MULTIPLE) 1+ MACROCYTOSIS (NORMAL)
--- NOTE | 2018-07-12 08:13 | PROVIDER PROGRESS NOTE ---
Subjective - Prog Note Date Prog Note Date: 07/12/18 Prog Note Time: 14:05 - Subjective Subjective: He says that he is much better than even yesterday. He still has quite a bit of pleuritic rib cage pain. But is able to bring up good phlegm with strong c oughs. Using incentive spirometry and a regular basis. He is walking in the room to the bathroom without an assist.He is eating 75-100% of all of his food With exertion his oxygen saturation is normal. Nursing is noting that at night, in the middle of a deep sleep, he desaturates to 85% on room air. Current Medications - Current Medications Current Medications: Active Medications Acetaminophen (Tylenol) 650 mg PO Q4HR PRN PRN Reason: Pain or Fever > 38C (100.4F) Aspirin (Ecotrin) 81 mg PO DAILY [facility] Last Admin: 07/11/18 09:11 Dose: 81 mg Azithromycin (Zithromax) 250 mg PO Q24H [facility] Stop: 07/12/18 21:01 Last Admin: 07/11/18 21:34 Dose: 250 mg Docusate Sodium (Colace 250mg Capsule) 250 - 500 mg PO DAILY [facility] Last Admin: 07/11/18 09:11 Dose: 250 mg Ferrous Gluconate (Fergon) 324 mg PO DAILYWM [facility] Last Admin: 07/11/18 09:11 Dose: 324 mg Gabapentin (Neurontin) 300 mg PO TID [facility] Last Admin: 07/12/18 05:41 Dose: 300 mg Ceftriaxone Sodium 1 gm/ (Sodium Chloride) 100 mls @ 200 mls/hr IV Q24H [facility] Last Infusion: 07/11/18 22:05 Dose: Infused Sodium Chloride (Normal Saline 0.9%) 1,000 mls @ 125 mls/hr IV .Q8H [facility] Last Admin: 07/12/18 04:01 Dose: 125 mls/hr Insulin Aspart (Novolog) 1 - 5 unit SUBQ 0800,1200,1700,2100 [facility]; Protocol Last Admin: 07/11/18 21:40 Dose: 1 unit Nystatin (Mycostatin Cream) 1 applic TOP BID [facility] Last Admin: 07/11/18 21:35 Dose: 1 inch Polyethylene Glycol (Miralax) 17 gm PO DAILY [facility] Last Admin: 07/11/18 09:11 Dose: 17 gm Senna (Senokot) 8.6 - 17.2 mg PO DAILY [facility] Last Admin: 07/11/18 09:11 Dose: 8.6 mg Sodium Chloride (Normal Saline Flush 0.9%) 10 ml IVP PRN PRN PRN Reason: NEEDED PER PROVIDER ORDERS Last Admin: 07/12/18 04:01 Dose: 10 ml Sodium Chloride (Normal Saline Flush 0.9%) 10 ml IVP 0100,0900,1700 [facility] Last Admin: 07/12/18 01:44 Dose: Not Given Sodium Chloride ([place]) 2 sprays ODILIA Q4HR PRN PRN Reason: Nasal Congestion Last Admin: 07/09/18 13:55 Dose: 1 spr Tramadol HCl (Ultram) 50 mg PO Q6H PRN PRN Reason: PAIN Last Admin: 07/11/18 04:10 Dose: 50 mg Lisinopril 20 mg PO DAILY 12/26/12 Metformin HCl 1,000 mg PO BIDWM 12/26/12 Simvastatin 20 mg PO QPM 12/26/12 Gabapentin 600 mg PO TID 07/08/18 Hydrochlorothiazide 12.5 mg PO DAILY 07/08/18 Aspirin [Aspirin EC] 80 mg PO DAILY 07/09/18 Ferrous Sulfate 325 mg PO DAILY 07/09/18 Nystatin 1 applic TOP BID 07/09/18 Objective - Vital Signs/Intake & Output Reviewed Vital Signs: Yes Vital Signs: Vital Signs x48h Temp Pulse Resp BP Pulse Ox 07/12/18 00:22 37.3 C 77 18 138/69 H 93 Intake & Output: Intake & Output 07/09/18 07/10/18 07/11/18 07/12/18 23:59 23:59 23:59 23:59 Intake Total 4465.0 4940 4482.083 1000 Output Total 2600 3250 1450 1650 Balance 1865.0 1690 3032.083 -650 - Objective General Appearance: positive: No acute distress, Alert, Other (Elderly white male who is sitting upright in bed after just getting out of bed for the bathroom. No tachypnea. During exam has several episodes of a deep phlegmy cough.) Eyes Bilateral: positive: PERRL ENT: positive: Pharynx nml Neck: positive: No JVD. negative: Stiff neck, Carotid bruit Respiratory: positive: Chest non-tender, Rhonchi (That come and go. He coughs and they disappear. Within a few minutes they come back. Coughs again.). negative: Wheezes, Rales Cardiovascular: positive: Regular rate & rhythm. negative: Systolic murmur, Gallop/S4, Friction rub Abdomen: positive: Non-tender, No organomegaly, Nml bowel sounds, No distention Skin: positive: Warm, Dry Extremities: positive: Full ROM, No pedal edema Neurologic/Psychiatric: positive: Oriented x3, CN's nml (2-12) (Slightly deaf), Motor nml - Lab Results Fish Bones: 07/12/18 04:50 07/12/18 04:50 Other Labs: Lab Results x24hrs 07/12/18 07/12/18 07/12/18 Range/Units 07:43 04:50 04:50 WBC 9.7 (4.8-10.8) x10^3/uL RBC 2.86 L (4.70-6.10) 10^6/uL Hgb 8.9 L (14.0-18.0) g/dL Hct 27.0 L (42.0-52.0) % MCV 94.5 H (80.0-94.0) fL MCH 31.3 H (27.0-31.0) pg MCHC 33.1 (32.0-36.0) g/dL RDW 13.8 (12.0-15.0) % Plt Count 387 (130-450) 10^3/uL MPV 6.7 L (7.4-11.4) fL Neut # (Auto) 6.8 H (1.5-6.6) 10^3/uL Lymph # (Auto) 1.3 L (1.5-3.5) 10^3/uL [place] # (Auto) 1.0 (0.0-1.0) 10^3/uL Eos # (Auto) 0.5 (0.0-0.7) 10^3/uL Baso # (Auto) 0.0 (0.0-0.1) 10^3/uL Absolute Nucleated RBC 0.00 x10^3/uL Nucleated RBC % 0.0 /100WBC Manual Slide Review Indicated Platelet Estimate NORMAL (130-450,000) (NORMAL) RBC Morph Micro Appear 1+ MACROCYTOSIS (NORMAL) Sodium 142 (135-145) mmol/L Potassium 4.3 (3.5-5.0) mmol/L Chloride 112 H (101-111) mmol/L Carbon Dioxide 23 (21-32) mmol/L Anion Gap 7.0 (6-13) BUN 55 H (6-20) mg/dL Creatinine 2.9 H (0.6-1.2) mg/dL Estimated GFR (MDRD) 21 L (>89) Glucose 121 H (70-100) mg/dL POC Whole Bld Glucose 104 H (70 - 100) mg/dL Calcium 8.5 (8.5-10.3) mg/dL Total Bilirubin 0.9 (0.2-1.0) mg/dL AST 73 H (10-42) IU/L ALT 74 H (10-60) IU/L Alkaline Phosphatase 216 H (42-121) IU/L Total Creatine Kinase 602 H (22-269) IU/L Total Protein 5.4 L (6.7-8.2) g/dL Albumin 2.4 L (3.2-5.5) g/dL Globulin 3.0 (2.1-4.2) g/dL Albumin/Globulin Ratio 0.8 L (1.0-2.2) 07/11/18 07/11/18 07/11/18 Range/Units 20:55 16:28 11:37 WBC (4.8-10.8) x10^3/uL RBC (4.70-6.10) 10^6/uL Hgb (14.0-18.0) g/dL Hct (42.0-52.0) % MCV (80.0-94.0) fL MCH (27.0-31.0) pg MCHC (32.0-36.0) g/dL RDW (12.0-15.0) % Plt Count (130-450) 10^3/uL MPV (7.4-11.4) fL Neut # (Auto) (1.5-6.6) 10^3/uL Lymph # (Auto) (1.5-3.5) 10^3/uL [place] # (Auto) (0.0-1.0) 10^3/uL Eos # (Auto) (0.0-0.7) 10^3/uL Baso # (Auto) (0.0-0.1) 10^3/uL Absolute Nucleated RBC x10^3/uL Nucleated RBC % /100WBC Manual Slide Review Platelet Estimate (NORMAL) RBC Morph Micro Appear (NORMAL) Sodium (135-145) mmol/L Potassium (3.5-5.0) mmol/L Chloride (101-111) mmol/L Carbon Dioxide (21-32) mmol/L Anion Gap (6-13) BUN (6-20) mg/dL Creatinine (0.6-1.2) mg/dL Estimated GFR (MDRD) (>89) Glucose (70-100) mg/dL POC Whole Bld Glucose 150 H 107 H 104 H (70 - 100) mg/dL Calcium (8.5-10.3) mg/dL Total Bilirubin (0.2-1.0) mg/dL AST (10-42) IU/L ALT (10-60) IU/L Alkaline Phosphatase (42-121) IU/L Total Creatine Kinase (22-269) IU/L Total Protein (6.7-8.2) g/dL Albumin (3.2-5.5) g/dL Globulin (2.1-4.2) g/dL Albumin/Globulin Ratio (1.0-2.2) ABX Reporting Has patient been on IV antibiotics over the past 48 hours?: Yes Sepsis Event Note (H) - Evaluation Current Stage of Sepsis: Ruled out Possible source of Sepsis: positive: Pulmonary - Sepsis Criteria Sepsis Criteria: Recorded Heart Rate greater than 90 bpm, WBC count greater than 12,000 or less than 4000 Assessment/Plan - Problem List (1) DAVID (acute kidney injury) Impression: BUN/creat improving with iv hydration and decline in CK. 5.4>5.8>5.4>5.1>4>2.9 today. Fluid balance was (+) 1600 07/11 and (+)2L the previous 2 days. Repeat chest x-ray 07/11 shows pulmonary vascular congestion has resolved, small residual pleural effusions. stop IVF today. Monitor renal function daily. Poss DCh tomorrow. (2) Rhabdomyolysis Qualifiers: Rhabdomyolysis type: traumatic Encounter type: initial encounter Qualified Code(s): T79.6XXA - Traumatic ischemia of muscle, initial encounter Assessment/Plan: CK declining daily. 10,082 >5856> 3902 >2339 >1195> 602 today stop IVF Monitor CK daily. (3) Fall at home Qualifiers: Encounter type: sequela Qualified Code(s): W19.XXXS - Unspecified fall, sequela; Y92.009 - Unspecified place in unspecified non-institutional (private) residence as the place of occurrence of the external cause Assessment/Plan: As per 07/10/18 note: he probably fell at home due to orthostasis, was dehydrated, febrile and possibly delirious from infection. No further orthostasis, since hypotension on first day was treated with fluids and he is off his home meds of Lisinopril and HCTZ. His BP is still not elevated to need a restart of any HTN meds.Blood pressure in the last 24 hours is 122-144 systolic. 60-69 diastolic. The patient lives alone and would benefit from a LifeAlert. I will ask Social Work to meet with patient. (4) Community acquired bacterial pneumonia Assessment/Plan: CXR today shows resolution of pulmonary vascular congestion and improvement of bibasilar infiltrates, and only small residual bilateral pleural effusions remain. Continue empiric po Zithromax and iv Ceftriaxone, since there were no cultures taken of sputum or blood at admission. Today is day #5 of a 7 day course planned. Will send home on po azithro for 2 more days and amoxil for 3 more days. (5) Rib fracture Qualifiers: Encounter type: subsequent encounter Rib fracture type: single rib Fracture type: closed Laterality: right Assessment/Plan: Continue pain control, Incentive Spirometer and PEP management. He demonstrates to me his willingness to do the incentive spirometry during the exam Continue ambulation with PT. (6) Elevated LFTs Assessment/Plan: Improving daily. I suspect he had shock liver from hypotension. Will check serology and US of liver to make sure (7) Anemia Qualifiers: Anemia type: iron deficiency Assessment/Plan: B12 and Folate levels are adequate, but low Iron stores. Will start oral Iron replacement and discuss constipation management. In the outpatient setting, he should discuss this with his primary care provider to decide if any further workup needs to be done. He does not remember if he had a recent colonoscopy, etc. (8) Diabetes mellitus, type II Assessment/Plan: Continue carb-controlled diet, fingerstick glu checks and ss Insulin coverage. Pt is off his Metformin due to DAVID. Glucose yesterday varied between 104 250. This morning he has been 104 and this afternoon 155 I do not recommend resuming his metformin in the outpatient setting until his creatinine is normal. Sulfonylureas would be contraindicated on the [place] list for his age group. (9) Hx of headache Assessment/Plan: His Gabapentin is ordered.
[2018-07-12] MEDS: POLYETHYLENE GLYCOL 3350 17 GM PACKET PO SCH (08:45)
[2018-07-12] MEDS: SENNA 8.6 MG TABLET PO SCH (08:45)
[2018-07-12] MEDS: ASPIRIN EC 81 MG TABLET PO SCH (08:46)
[2018-07-12] MEDS: FERROUS GLUCONATE 324 MG TABLET PO SCH (08:46)
[2018-07-12] MEDS: DOCUSATE SODIUM 250 MG CAPSULE PO SCH (08:46)
[2018-07-12] MEDS: NYSTATIN CREAM 15 GM TUBE TOP SCH ×2 (08:47→21:30)
[2018-07-12] MEDS: INSULIN ASPART 300 UNIT/3 ML PEN SUBQ SCH ×4 (09:28→21:29)
[2018-07-12] MEDS: AZITHROMYCIN 250 MG TABLET PO SCH (21:28)
[2018-07-12] MEDS: cefTRIAXone 1 GM in SODIUM CHLORIDE 0.9% MINIBAG 100 ML IV SCH (21:28)
[2018-07-13] MEDS: SODIUM CHLORIDE FLUSH 0.9% 10 ML SYRINGE IVP SCH ×2 (00:12→08:11)
--- NOTE | 2018-07-13 04:20 | Ultrasound Report ---
Reason: elevated LFT Procedure Date: 07/13/2018 Accession Number: [id number] / [id number] Procedure: US - Abdomen Limited CPT Code: FULL RESULT: EXAM: ABDOMEN ULTRASOUND LIMITED, RUQ EXAM DATE: 07/13/2018 02:23 AM. CLINICAL HISTORY: Elevated LFT. COMPARISON: None. TECHNIQUE: Real-time scanning was performed with static images obtained. FINDINGS: Liver: Heterogeneous echotexture. 17.5 cm. Main portal vein flow: Hepatopetal. Gallbladder: Normal. No stones, wall thickening, or sonographic Fan's sign. Biliary System: CBD measures 2.8 mm. No intrahepatic or extrahepatic ductal dilatation. Other: Right kidney measures 11.1 cm. Lateral cyst measuring 1.9 x 1.8 x 1.7 cm. Small echogenic focus measuring 6 x 3 x 5 mm which could be a nonobstructing stone. No hydronephrosis seen. Pancreas is not well seen. Right pleural effusion suspected. IMPRESSION: 1. No cholelithiasis or cholecystitis identified. 2. No biliary dilatation. 3. Fatty liver. 4. Possible small nonobstructing right renal stone. 5. Suspect right pleural effusion. RADIA
[2018-07-13 05:19] LABS: ALBUMIN 2.6 g/dL (3.2-5.5); ALBUMIN/GLOBULIN RATIO 0.9 (1.0-2.2); BILIRUBIN,TOTAL 0.6 mg/dL (0.2-1.0); CALCIUM 8.8 mg/dL (8.5-10.3); CREATININE 2.2 mg/dL (0.6-1.2); TOTAL PROTEIN 5.5 g/dL (6.7-8.2)
[2018-07-13] MEDS: GABAPENTIN 300 MG CAPSULE PO SCH (05:34)
[2018-07-13 07:56] VITALS: BP 140/65
--- NOTE | 2018-07-13 07:58 | Discharge Plan ---
Discharge Plan Disposition: Home, Self Care Condition: Good Prescriptions: Amoxicillin 1,000 mg PO TID #6 capsule traMADol [Ultram] 50 mg PO Q6H PRN #30 tablet PRN Reason: Pain Diet: Regular Activity Restrictions: Activity as Tolerated Shower Restrictions: No Driving Restrictions: Yes (no diving while taking tramadol) Assistance Devices: Cane Instruction Topics: Tramadol tablets, Amoxicillin capsules or tablets, Rhabdomyolysis, Pneumonia, Pneumonia Prevent Additional Instructions or Follow Up instructions: You were sent to the hospital by your primary care provider because the lab work done at the office the day you visited them show you had renal failure. We were able to obtain a history that you had fallen, several times, and realized that you may have had a severe viral infection resulting in dehydration and weakness with the falls. That in turn resulted in muscle damage, and a disease called rhabdomyolysis. Muscle damage accumulates in your bloodstream, and will clogged up your kidneys causing kidney failure. Normal creatinine is to be less than 1.0. When you came to the hospital you were at 5.8. You leave today being 2.2. Please make sure you drink plenty of fluids, and have your primary care provider check your kidney function next week. They will check it with a lab test called a [facility] [place]. Because of your dehydration and viral syndrome, we also treated you as pneumonia. You need to finish taking antibiotics for the next 3 days. Your liver enzymes were elevated and an ultrasound shows you to have a fatty liver. Blood test are pending at the time of discharge for hepatitis. Those also need to be reviewed by your primary care provider when you see the office next week. They need to make sure those results are negative. You seem to have a chronic iron deficiency anemia. While here, there was no rectal bleeding, complaints of ulcer pain. Normal amount of hemoglobin is 14 g. You presented at 11.5 g and slowly drifted down to 8.9 g. Have your primary care provider check your blood work next week to make sure your anemia is not worse. Continue your iron tablets that you take at home. One final thing, you did break your ribs with your fall. This will hurt every time you take a deep breath, cough, sneeze. We can only imagine how much that hurts you. But please make sure you practice deep breathing with the incentive spirometer we are sending you home with. This will help prevent further pneumonia. We are also sending you home on a few pain tablets of tramadol. You take 1 tablet every [address] not drive if you have taking the tramadol. If you need refills please call your primary care provider. No Smoking: If you smoke, Please STOP! Call for help. Follow-up with: Agatha Garcia PA [Primary Care Provider] -
[2018-07-13] MEDS: INSULIN ASPART 300 UNIT/3 ML PEN SUBQ SCH (07:59)
[2018-07-13] MEDS: DOCUSATE SODIUM 250 MG CAPSULE PO SCH (07:59)
[2018-07-13] MEDS: POLYETHYLENE GLYCOL 3350 17 GM PACKET PO SCH (08:00)
[2018-07-13] MEDS: ASPIRIN EC 81 MG TABLET PO SCH (08:11)
[2018-07-13] MEDS: FERROUS GLUCONATE 324 MG TABLET PO SCH (08:11)
[2018-07-13] MEDS: SENNA 8.6 MG TABLET PO SCH (08:11)
[2018-07-13] MEDS: NYSTATIN CREAM 15 GM TUBE TOP SCH (10:02)
[2018-07-14 14:12] LABS: HEPATITIS A IGM NON-REACTIVE (NON-REACTIVE); HEPATITIS B CORE ANTIBODY IGM NON-REACTIVE (NON-REACTIVE); HEPATITIS B SURFACE ANTIGEN NON-REACTIVE (NON-REACTIVE); HEPATITIS C ANTIBODY NON-REACTIVE (NON-REACTIVE)
--- NOTE | 2018-07-15 06:20 | DISCHARGE SUMMARY ---
Physician: Ana M Lew MD DATE OF ADMISSION: 07/08/2018 DATE OF DISCHARGE: 07/13/2018 DISCHARGE DIAGNOSES 1. Acute kidney failure. 2. Rhabdomyolysis. 3. Fracture of one rib, right side, closed. 4. Community-acquired pneumonia. 5. Type 2 diabetes mellitus, without complications, not on long-term use of insulin. 6. Essential hypertension. 7. Hyperlipidemia. 8. Fall at home. 9. Abnormal liver function studies. 10. Iron deficiency anemia. 11. 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 DISCHARGE MEDICATIONS 1. Aspirin 81 mg a day. 2. Ferrous sulfate 325 mg daily. 3. Gabapentin 600 mg p.o. t.i.d. p.r.n. 4. Lisinopril 20 mg daily. 5. Nystatin cream topically b.i.d. to affected area. 6. Simvastatin 20 mg p.o. q.p.m. NEW PRESCRIPTIONS 1. Amoxicillin 100 mg p.o. t.i.d., #6 capsules. 2. Tramadol 50 mg p.o. q. 6 hours p.r.n., #30. PRINCIPAL PROCEDURES 1. Chest x-ray with nonspecific patchy densities in the lung bases bilaterally. No real significant change from rib films of 07/08/2018. 2. Repeat chest x-ray July 09, with worsening pulmonary vascular congestion, increasing patchy bilateral basilar atelectasis or infiltrate; small bilateral effusions, increased in comparison to prior. 3. Chest x-ray, July 11, with recent pulmonary vascular congestion, has essentially resolved. Small residual pleural effusions. 4. Head CT. Air fluid level in the right maxillary sinus. Fluid in the right frontal and sphenoid sinus. Bilateral ethmoid sinus mucosal thickening. 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 Negative for acute hemorrhage or mass effect. 5. Hip/pelvis x-ray with diffuse osteopenia, without radiologic evidence for fracture. Mild right hip degenerative changes. 6. Carotid Doppler study. No significant bilateral carotid artery plaquing. Right carotid artery without elevated carotid artery velocities. Right ICA is moderate to severely tortuous. Left carotid velocity is normal. Normal anterograde flow present in bilateral vertebral arteries. 7. Abdominal ultrasound without cholelithiasis or cholecystitis identified. No biliary dilatation. Fatty liver. Possible small obstructing right renal stone. Suspected small right pleural effusion. 8. Echocardiogram with left ventricular size normal. Wall thickness normal. Ejection fraction 60% to 65%. Normal diastology. Right ventricle: Normal size and function. No significant valvular heart disease. HOSPITAL COURSE: The patient is an 78-year-old, otherwise healthy man who presented to the emergency room at the request of his primary care provider for abnormal labs. The patient reports that he had come down with a really bad viral infection. He had gotten it from his family. Coughing, sneezing, congestion. It took away his appetite and made him very tired. He fell on July 05. He does not remember why he fell, he thinks he may have been sleepwalking at the time. It took him 3 efforts to get up off the coffee table he fell on, and it was with the final fall that he thinks he really hurt his right ribcage. He went to go see his primary care provider today, July 08, and lab work was done at the office, and he had a creatinine of 5.9. He was sent to the emergency room and evaluated by Dr. Elmore. PHYSICAL EXAMINATION VITAL SIGNS: Temperature was 36.6, heart rate 97, respirations 16, blood pressure 132/47, and he was 98% saturated. GENERAL: He is a tall, lanky, elderly gentleman who is alert and oriented, but was uncomfortable because of bruising. SKIN: On physical exam, bruising was seen throughout his torso with bruises on arms, chest wall, legs, forearms, but there were no palpable deformities. NEUROLOGIC: He was alert and oriented, and had normal speech. LABORATORY DATA: White cell count was 12.5, hemoglobin 11.5, hematocrit 34.1, platelets 354. INR 1. Urine was dark yellow, with a large amount of occult blood, small amount of bilirubin, 11-25 red cells, 0-3 white cells, transitional cells, squamous cells, rare bacteria. BUN was 93, creatinine 5.4. Total bilirubin 1.4, AST 302, ALT 128, alkaline phosphatase 210, CK 10,082. ASSESSMENT AND PLAN: The patient was felt to have acute kidney injury secondary to trauma, as well as rhabdomyolysis secondary to trauma. The antecedent viral syndrome probably made him tired, dehydrated, and the falls contributed severely to his deterioration. Rib films showed him to have fracture of the rib on the right side, only 1, closed. For the patchy infiltrates that were most likely due to probable early atelectasis, followed by inability to take deep breaths, he was treated as community-acquired pneumonia with Rocephin and azithromycin. In the outpatient setting, he had doxycycline and Augmentin, given by his PCP. He has diabetes mellitus type 2. Metformin was held due to acute kidney injury. No lactic acid level was done on admission, but I suspect there may have been some element of lactic acidosis because of the kidney failure and use of creatinine. During his stay, his liver enzymes were monitored and gradually started to normalize. At discharge, bilirubin was now normal at 0.6. AST was down to 57, ALT 66, alkaline phosphatase 216. He was felt to have had possible dehydration with hypotension as a cause of his liver problems. Ultrasound of the liver was done as above. Hepatitis serology was nonreactive. This was for A, B, and C. Because of the CPK, simvastatin was initially held and not resumed until later on. He has a history of iron deficiency anemia, and his ferrous sulfate was discontinued in favor of ferrous gluconate. However, ferrous sulfate was resumed at discharge. During his stay, iron was 24, TIBC 185, percent saturation 13, transferrin 132, B12 266 with low normal being 180, folate was 9.54. He says that he is known to have iron deficiency anemia, cannot tell me why. Does he have a history of ulcers, he had his colonoscopy brought up-to-date? He does fear falling again. He does not know how he fell the first time. He does have residual gait ataxia from his previous stroke, and CT confirms encephalomalacia. He was seen by Physical Therapy. He is able to transfer with standby assist out of the bed, stand at a front-wheeled walker, and had good balance as time went on. He was able to walk in the hallways 300 feet without loss of balance or sway. He demonstrated a normal gait pattern per reciprocation of normal step length at base. He denied any symptoms after walking and he was not tired, did not feel faint and did not have fatigue. He has a front-wheeled walker at home and it is recommended that that be brought in from home, so he can practice here at the hospital. Physical Therapy recommended he continue to use the front-wheeled walker for all ambulation, even at home, but especially outside in the community. They do not feel he met needs for inpatient physical therapy or senior care rehabilitation. They recommended outpatient followup with [facility], as that is closest to him. By the time of discharge, creatinine had peaked at 5.8 and was now down to 2.2. It is recommended that he get his BMP checked in the next week to make sure his creatinine continues to trend down. It is hoped that his creatinine will return to normal baseline for him. We want to finish treatment for pneumonia with his antibiotics. Amoxicillin was continued, but azithromycin no longer continued since he reached full goal. Anemia is noted, where he started at 11.9 grams and drifted down to 8.9, and he was reminded to make sure he takes his iron tablets. He was also instructed on how to use incentive spirometer to reduce his risk of pneumonia, and he used it during his stay and asked to do it at home. DISCHARGE PHYSICAL EXAMINATION VITAL SIGNS: At discharge, he was 36.7, pulse 65, blood pressure 140/65, respirations 17, and 91% on room air. After deep breathing and coughing, he was 95% on room air. GENERAL: He is a tall, lanky, elderly gentleman who looks his stated age, slight nasal tone of voice with listing voice. No rhinorrhea or coryza. Lamented that it hurt to take a deep breath, especially on his right side. LUNGS: Initial lung exam with bibasilar crackles would clear when I would have him hold a pillow to his chest and give me a deep cough. No rhonchi or wheezing. No increased respiratory effort. HEART: PMI was normally placed, with a regular rate and rhythm in this thin gentleman, who is 6 feet 1 inch and weighs 99 kg. ABDOMEN: Soft, nontender. Normal bowel sounds. Liver edge was not palpable, in spite of fatty liver noted on ultrasound. Normal bowel sounds. No masses. EXTREMITIES: Still covered with fading bruises at this point in time, but no clubbing or cyanosis, just the deformities of osteoarthritis. Greater than 30 minutes was spent in coordinating discharge. He is asked to follow up with his primary care provider, Agatha Garcia. CC: BRANDIE Dennis @ [facility] [address] TD: 07/14/2018 18:42 [email or web address]
== END 2018-07-13 11:46 | disposition home or self-care (01) | DRG 682 ==
LOC: ED 15:00 → MS2 19:37
PROVIDERS: ADMIT Internal Medicine; ATTEND Specialist
DX: N17.9 Acute kidney failure, unspecified (principal); J15.9 Unspecified bacterial pneumonia; S22.31XA Fracture of one rib, right side, initial encounter for closed fracture; T79.6XXA Traumatic ischemia of muscle, initial encounter; W19.XXXA Unspecified fall, initial encounter; E11.9 Type 2 diabetes mellitus without complications; I10 Essential (primary) hypertension; E78.5 Hyperlipidemia, unspecified; R79.89 Other specified abnormal findings of blood chemistry; D50.9 Iron deficiency anemia, unspecified; I69.393 Ataxia following cerebral infarction; B34.9 Viral infection, unspecified; E86.0 Dehydration; K76.0 Fatty (change of) liver, not elsewhere classified; S70.01XA Contusion of right hip, initial encounter; S51.011A Laceration without foreign body of right elbow, initial encounter; E78.00 Pure hypercholesterolemia, unspecified; Z87.442 Personal history of urinary calculi; M19.90 Unspecified osteoarthritis, unspecified site; G93.89 Other specified disorders of brain; R51 Headache
CPT/HCPCS: 36415; 70450; 71045; 71046; 76705; 80048; 80053; 80074; 80076; 81001; 81003; 82550; 82607; 82746; 83036; 83540; 83690; 83880; 84466; 84484; 85025; 85610; 87086; 93005; 93306; 93880; 96360; 99283; 99285

== ENCOUNTER 2018-08-31 10:29 | Outpatient (CLI) | payer MEDICARE, OTHER | END 2018-08-31 10:30 | disposition home or self-care (01) | LOC: DI 10:29 | PROVIDERS: ATTEND Family Medicine | DX: Z53.9 Procedure and treatment not carried out, unspecified reason (principal) ==

== ENCOUNTER 2018-08-31 10:33 | Outpatient (CLI) | payer MEDICARE, OTHER ==
[2018-08-31 19:08] LABS: CALCIUM 9.3 mg/dL (8.5-10.3)
== END 2018-08-31 10:34 | disposition home or self-care (01) ==
LOC: LAB.WCP 10:33
PROVIDERS: ATTEND Family Medicine
DX: N17.9 Acute kidney failure, unspecified (principal)
CPT/HCPCS: 36415; 80048

== ENCOUNTER 2018-10-12 08:20 | Outpatient (CLI) | payer OTHER ==
[2018-10-12 15:23] LABS: BASOPHILS % (AUTO) 0.7 %; EOSINOPHILS # (AUTO) 0.2 10^3/uL (0.0-0.7); EOSINOPHILS % (AUTO) 3.7 %; HGB - HEMOGLOBIN 10.9 g/dL (14.0-18.0); LYMPHOCYTES % (AUTO) 31.8 %; MEAN CORPUSCULAR HEMOGLOBIN 30.9 pg (27.0-31.0); MEAN CORPUSCULAR HGB CONC 32.9 g/dL (32.0-36.0); MEAN CORPUSCULAR VOLUME 93.9 fL (80.0-94.0); MEAN PLATELET VOLUME 7.9 fL (7.4-11.4); MONOCYTES # (AUTO) 0.6 10^3/uL (0.0-1.0); MONOCYTES % (AUTO) 9.4 %; NEUTROPHILS # (AUTO) 3.3 10^3/uL (1.5-6.6); NEUTROPHILS % (AUTO) 54.4 %; PLT - PLATELET COUNT 252 10^3/uL (130-450); RED BLOOD COUNT 3.53 10^6/uL (4.70-6.10); RED CELL DISTRIBUTION WIDTH 13.6 % (12.0-15.0); WHITE BLOOD COUNT 6.2 x10^3/uL (4.8-10.8)
[2018-10-12 15:50] LABS: CALCIUM 9.6 mg/dL (8.5-10.3); CREATININE 1.1 mg/dL (0.6-1.2)
== END 2018-10-12 08:21 | disposition home or self-care (01) ==
LOC: LAB.WCP 08:20
DX: D50.9 Iron deficiency anemia, unspecified (principal)
CPT/HCPCS: 36415; 80048; 85025

== ENCOUNTER 2019-03-09 08:00 | Outpatient (CLI) | payer OTHER ==
[2019-03-09 12:15] LABS: BASOPHILS # (AUTO) 0.1 10^3/uL (0.0-0.1); EOSINOPHILS # (AUTO) 0.3 10^3/uL (0.0-0.7); EOSINOPHILS % (AUTO) 4.9 %; LYMPHOCYTES # (AUTO) 2.2 10^3/uL (1.5-3.5); LYMPHOCYTES % (AUTO) 31.5 %; MEAN CORPUSCULAR HEMOGLOBIN 31.1 pg (27.0-31.0); MEAN CORPUSCULAR HGB CONC 32.5 g/dL (32.0-36.0); MEAN CORPUSCULAR VOLUME 95.7 fL (80.0-94.0); MONOCYTES # (AUTO) 0.7 10^3/uL (0.0-1.0); MONOCYTES % (AUTO) 10.7 %; NEUTROPHILS # (AUTO) 3.5 10^3/uL (1.5-6.6); NEUTROPHILS % (AUTO) 51.5 %; PLT - PLATELET COUNT 230 10^3/uL (130-450); RED BLOOD COUNT 3.22 10^6/uL (4.70-6.10); RED CELL DISTRIBUTION WIDTH 12.8 % (12.0-15.0); WHITE BLOOD COUNT 6.9 x10^3/uL (4.8-10.8)
[2019-03-09 13:04] LABS: HB2 TOTAL 10.5 g/dL; HEMOGLOBIN A1C 0.51 g/dL; HEMOGLOBIN A1C % 6.6 % (4.6-6.2)
[2019-03-09 13:42] LABS: ALBUMIN 4.2 g/dL (3.2-5.5); ALBUMIN/GLOBULIN RATIO 1.6 (1.0-2.2); ALKALINE PHOSPHATASE 145 IU/L (42-121); ALT ALANINE AMINOTRANSFERASE 28 IU/L (10-60); AST ASPARTATE AMINOTRANSFERASE 36 IU/L (10-42); BILIRUBIN,TOTAL 0.5 mg/dL (0.2-1.0); BUN - BLOOD UREA NITROGEN 24 mg/dL (6-20); CALCIUM 9.3 mg/dL (8.5-10.3); CARBON DIOXIDE - CO2 27 mmol/L (21-32); CHLORIDE 109 mmol/L (101-111); CHOL/HDL RATIO 3.5 (<5.0); CHOLESTEROL 117 mg/dL; CREATININE 1.3 mg/dL (0.6-1.2); GFR - MDRD 53 (>89); GLUCOSE 116 mg/dL (70-100); HDL CHOLESTEROL 33 mg/dL; LDL CHOLESTEROL,CALCULATED 58 mg/dL; LDL/HDL RATIO 1.8 (<3.6); SODIUM 141 mmol/L (135-145); TOTAL PROTEIN 6.8 g/dL (6.7-8.2); VLDL CHOLESTEROL 26 mg/dL
[2019-03-09 13:45] LABS: CREATININE,URINE 101.2 mg/dL; MICROALBUM/CREATININE RATIO,UR 5.9 ug/mg (<30.0); MICROALBUMIN,URINE 0.6 mg/dL (0-300.0)
== END 2019-03-09 23:59 | disposition home or self-care (01) ==
LOC: LAB.WCP 08:00
PROVIDERS: ATTEND Family Medicine
DX: E11.9 Type 2 diabetes mellitus without complications (principal); R79.89 Other specified abnormal findings of blood chemistry; N17.9 Acute kidney failure, unspecified; E78.5 Hyperlipidemia, unspecified; R97.20 Elevated prostate specific antigen [PSA]; D64.9 Anemia, unspecified
CPT/HCPCS: 36415; 80053; 80061; 82043; 82570; 83036; 83721; 84153; 85025

== ENCOUNTER 2019-06-06 07:43 | Outpatient (CLI) | payer OTHER ==
[2019-06-06 14:53] LABS: HB2 TOTAL 11.7 g/dL; HEMOGLOBIN A1C 0.75 g/dL
[2019-06-06 14:58] LABS: CREATININE,URINE 114.4 mg/dL; MICROALBUM/CREATININE RATIO,UR 16.6 ug/mg (<30.0); MICROALBUMIN,URINE 1.9 mg/dL (0-300.0)
[2019-06-06 15:00] LABS: CALCIUM 9.3 mg/dL (8.5-10.3); CREATININE 1.3 mg/dL (0.6-1.2)
[2019-06-06 15:07] LABS: BASOPHILS # (AUTO) 0.1 10^3/uL (0.0-0.1); EOSINOPHILS # (AUTO) 0.3 10^3/uL (0.0-0.7); EOSINOPHILS % (AUTO) 4.9 %; HGB - HEMOGLOBIN 11.5 g/dL (14.0-18.0); LYMPHOCYTES # (AUTO) 2.2 10^3/uL (1.5-3.5); LYMPHOCYTES % (AUTO) 32.3 %; MEAN CORPUSCULAR HEMOGLOBIN 31.6 pg (27.0-31.0); MEAN CORPUSCULAR HGB CONC 31.9 g/dL (32.0-36.0); MEAN CORPUSCULAR VOLUME 99.2 fL (80.0-94.0); MEAN PLATELET VOLUME 9.8 fL (7.4-11.4); MONOCYTES # (AUTO) 0.7 10^3/uL (0.0-1.0); MONOCYTES % (AUTO) 10.1 %; NEUTROPHILS # (AUTO) 3.5 10^3/uL (1.5-6.6); NEUTROPHILS % (AUTO) 51.4 %; PLT - PLATELET COUNT 238 10^3/uL (130-450); RED BLOOD COUNT 3.64 10^6/uL (4.70-6.10); WHITE BLOOD COUNT 6.7 x10^3/uL (4.8-10.8)
== END 2019-06-06 23:59 | disposition home or self-care (01) ==
LOC: LAB.WCP 07:43
PROVIDERS: ATTEND Family Medicine
DX: E11.22 Type 2 diabetes mellitus with diabetic chronic kidney disease (principal); N18.3 Chronic kidney disease, stage 3 (moderate); D63.1 Anemia in chronic kidney disease; R42 Dizziness and giddiness
CPT/HCPCS: 36415; 80048; 82043; 82570; 82728; 83036; 83540; 84466; 85025

== ENCOUNTER 2019-09-05 07:15 | Outpatient (CLI) | payer OTHER ==
[2019-09-05 12:35] LABS: CALCIUM 9.4 mg/dL (8.5-10.3); CREATININE 1.5 mg/dL (0.6-1.2)
[2019-09-05 12:48] LABS: CREATININE,URINE 36.1 mg/dL; MICROALBUM/CREATININE RATIO,UR 8.3 ug/mg (<30.0); MICROALBUMIN,URINE 0.3 mg/dL (0-300.0)
[2019-09-05 12:52] LABS: HB2 TOTAL 11.5 g/dL; HEMOGLOBIN A1C 0.54 g/dL; HEMOGLOBIN A1C % 6.4 % (4.6-6.2)
== END 2019-09-05 23:59 | disposition home or self-care (01) ==
LOC: LAB.WCP 07:15
PROVIDERS: ATTEND Family Medicine
DX: Z00.00 Encounter for general adult medical examination without abnormal findings (principal)
CPT/HCPCS: 36415; 80048; 82043; 82570; 83036

== ENCOUNTER 2020-02-28 08:00 | Outpatient (CLI) | payer OTHER ==
[2020-02-28 12:21] LABS: BASOPHILS # (AUTO) 0.1 10^3/uL (0.0-0.1); BASOPHILS % (AUTO) 0.8 %; EOSINOPHILS # (AUTO) 0.2 10^3/uL (0.0-0.7); HGB - HEMOGLOBIN 11.8 g/dL (14.0-18.0); LYMPHOCYTES # (AUTO) 1.6 10^3/uL (1.5-3.5); LYMPHOCYTES % (AUTO) 24.5 %; MEAN CORPUSCULAR HEMOGLOBIN 31.5 pg (27.0-31.0); MEAN CORPUSCULAR HGB CONC 31.9 g/dL (32.0-36.0); MEAN CORPUSCULAR VOLUME 98.7 fL (80.0-94.0); MEAN PLATELET VOLUME 9.8 fL (7.4-11.4); MONOCYTES # (AUTO) 0.6 10^3/uL (0.0-1.0); MONOCYTES % (AUTO) 9.3 %; NEUTROPHILS # (AUTO) 3.9 10^3/uL (1.5-6.6); NEUTROPHILS % (AUTO) 62.1 %; PLT - PLATELET COUNT 238 10^3/uL (130-450); RED BLOOD COUNT 3.75 10^6/uL (4.70-6.10); RED CELL DISTRIBUTION WIDTH 12.1 % (12.0-15.0); WHITE BLOOD COUNT 6.3 x10^3/uL (4.8-10.8)
[2020-02-28 12:37] LABS: ALBUMIN 4.3 g/dL (3.2-5.5); ALBUMIN/GLOBULIN RATIO 1.5 (1.0-2.2); BILIRUBIN,TOTAL 0.6 mg/dL (0.2-1.0); CALCIUM 9.3 mg/dL (8.5-10.3); CREATININE 1.8 mg/dL (0.6-1.2); TOTAL PROTEIN 7.2 g/dL (6.7-8.2)
[2020-02-28 12:46] LABS: HEMOGLOBIN A1c% 6.8 % (4.27-6.07)
[2020-02-28 13:04] LABS: CREATININE,URINE 43.8 mg/dL; MICROALBUM/CREATININE RATIO,UR 4.6 ug/mg (<30.0); MICROALBUMIN,URINE 0.2 mg/dL (0-300.0)
[2020-02-28 13:56] LABS: FREE T4 (FREE THYROXINE) 0.68 ng/dL (0.58-1.64)
== END 2020-02-28 23:59 | disposition home or self-care (01) ==
LOC: LAB.WCP 08:00
PROVIDERS: ATTEND Family Medicine
DX: I12.9 Hypertensive chronic kidney disease with stage 1 through stage 4 chronic kidney disease, or unspecified chronic kidney disease (principal); N18.3 Chronic kidney disease, stage 3 (moderate); E78.5 Hyperlipidemia, unspecified; E11.9 Type 2 diabetes mellitus without complications
CPT/HCPCS: 36415; 80053; 82043; 82570; 83036; 84439; 84443; 85025

== ENCOUNTER 2020-05-30 07:00 | Outpatient (CLI) | payer OTHER ==
[2020-05-30 18:04] LABS: CALCIUM 9.4 mg/dL (8.5-10.3); CREATININE 1.5 mg/dL (0.6-1.2)
[2020-05-30 18:46] LABS: CREATININE,URINE 141.7 mg/dL; MICROALBUM/CREATININE RATIO,UR 3.5 ug/mg (<30.0); MICROALBUMIN,URINE 0.5 mg/dL (0-300.0)
[2020-05-30 20:18] LABS: HEMOGLOBIN A1c% 6.2 % (4.27-6.07)
== END 2020-05-30 23:59 | disposition home or self-care (01) ==
LOC: LAB.WCP 07:00
PROVIDERS: ATTEND Nurse Practitioner Family
DX: E11.9 Type 2 diabetes mellitus without complications (principal)
CPT/HCPCS: 36415; 80048; 82043; 82570; 83036

== ENCOUNTER 2020-08-27 08:00 | Outpatient (CLI) | payer OTHER ==
[2020-08-27 12:22] LABS: CALCIUM 9.4 mg/dL (8.5-10.3); CREATININE 1.4 mg/dL (0.6-1.2)
[2020-08-27 12:50] LABS: ESTIMATED AVERAGE GLUCOSE 143 mg/dL (70-100); HEMOGLOBIN A1c% 6.6 % (4.27-6.07)
== END 2020-08-27 23:59 | disposition home or self-care (01) ==
LOC: LAB.WCP 08:00
PROVIDERS: ATTEND Nurse Practitioner Family
DX: E11.9 Type 2 diabetes mellitus without complications (principal)
CPT/HCPCS: 36415; 80048; 83036

== ENCOUNTER 2020-12-30 06:57 | Day surgery (SDC) | payer MEDICARE, OTHER ==
[2020-12-30] MEDS ORDERED: MIDAZOLAM 2 MG/2 ML VIAL ONE ×2 (10:44→11:08)
[2020-12-30] MEDS ORDERED: fentaNYL 250 MCG/5 ML VIAL ONE (10:44)
[2020-12-30] MEDS ORDERED: LACTATED RINGERS 1,000 ML IV ONE (11:22)
[2020-12-30 11:43] VITALS: BP 95/58
== END 2020-12-30 06:58 | disposition home or self-care (01) ==
LOC: SDS 06:57
PROVIDERS: ATTEND Surgery
PROC: 0DBL8ZX Excision of Transverse Colon, Via Natural or Artificial Opening Endoscopic, Diagnostic (ICD-10-PCS; 2020-12-30)
PROC: 0DBP8ZX Excision of Rectum, Via Natural or Artificial Opening Endoscopic, Diagnostic (ICD-10-PCS; principal; 2020-12-30 08:15)
DX: R19.5 Other fecal abnormalities (principal); D12.3 Benign neoplasm of transverse colon; K62.1 Rectal polyp; K57.30 Diverticulosis of large intestine without perforation or abscess without bleeding; K64.8 Other hemorrhoids; G47.33 Obstructive sleep apnea (adult) (pediatric); Z87.891 Personal history of nicotine dependence
CPT/HCPCS: 45380; J3010; J7120

== ENCOUNTER 2021-02-26 08:00 | Outpatient (CLI) | payer OTHER ==
[2021-02-26 12:08] LABS: BASOPHILS # (AUTO) 0.1 10^3/uL (0.0-0.1); EOSINOPHILS # (AUTO) 0.3 10^3/uL (0.0-0.7); EOSINOPHILS % (AUTO) 4.2 %; HGB - HEMOGLOBIN 12.2 g/dL (14.0-18.0); LYMPHOCYTES # (AUTO) 1.9 10^3/uL (1.5-3.5); LYMPHOCYTES % (AUTO) 26.9 %; MEAN CORPUSCULAR HEMOGLOBIN 31.9 pg (27.0-31.0); MEAN CORPUSCULAR HGB CONC 32.1 g/dL (32.0-36.0); MEAN CORPUSCULAR VOLUME 99.5 fL (80.0-94.0); MEAN PLATELET VOLUME 10.1 fL (7.4-11.4); MONOCYTES # (AUTO) 0.6 10^3/uL (0.0-1.0); MONOCYTES % (AUTO) 9.1 %; NEUTROPHILS % (AUTO) 58.5 %; PLT - PLATELET COUNT 217 10^3/uL (130-450); RED BLOOD COUNT 3.82 10^6/uL (4.70-6.10); RED CELL DISTRIBUTION WIDTH 12.1 % (12.0-15.0); WHITE BLOOD COUNT 6.9 x10^3/uL (4.8-10.8)
[2021-02-26 12:29] LABS: ALBUMIN 4.3 g/dL (3.2-5.5); ALBUMIN/GLOBULIN RATIO 1.5 (1.0-2.2); ALKALINE PHOSPHATASE 159 IU/L (42-121); ALT ALANINE AMINOTRANSFERASE 28 IU/L (10-60); AST ASPARTATE AMINOTRANSFERASE 31 IU/L (10-42); BILIRUBIN,TOTAL 0.8 mg/dL (0.2-1.0); BUN - BLOOD UREA NITROGEN 19 mg/dL (6-20); CALCIUM 9.8 mg/dL (8.5-10.3); CARBON DIOXIDE - CO2 28 mmol/L (21-32); CHLORIDE 106 mmol/L (101-111); CHOL/HDL RATIO 3.6 (<5.0); CHOLESTEROL 138 mg/dL; CREATININE 1.4 mg/dL (0.6-1.2); GFR - MDRD 48 (>89); GLUCOSE 149 mg/dL (70-100); HDL CHOLESTEROL 38 mg/dL; LDL CHOLESTEROL,CALCULATED 73 mg/dL; LDL/HDL RATIO 1.9 (<3.6); POTASSIUM 4.8 mmol/L (3.5-5.0); SODIUM 142 mmol/L (135-145); TOTAL PROTEIN 7.2 g/dL (6.7-8.2); TRIGLYCERIDES 136 mg/dL; VLDL CHOLESTEROL 27 mg/dL
[2021-02-26 12:37] LABS: THYROID STIMULATING HORMONE 6.79 uIU/mL (0.34-5.60)
[2021-02-26 13:17] LABS: ESTIMATED AVERAGE GLUCOSE 134 mg/dL (70-100); HEMOGLOBIN A1c% 6.3 % (4.27-6.07)
[2021-02-26 13:46] LABS: FREE T4 (FREE THYROXINE) 0.77 ng/dL (0.58-1.64)
== END 2021-02-26 23:59 | disposition home or self-care (01) ==
LOC: LAB.WCP 08:00
PROVIDERS: ATTEND Family Medicine
DX: E11.22 Type 2 diabetes mellitus with diabetic chronic kidney disease (principal); E78.5 Hyperlipidemia, unspecified; D64.9 Anemia, unspecified; N18.30 Chronic kidney disease, stage 3 unspecified
CPT/HCPCS: 36415; 80053; 80061; 83036; 83721; 84439; 84443; 85025

== ENCOUNTER 2021-09-18 07:06 | Outpatient (CLI) | payer OTHER ==
[2021-09-18 11:52] LABS: ALBUMIN 4.2 g/dL (3.2-5.5); ALBUMIN/GLOBULIN RATIO 1.7 (1.0-2.2); ALKALINE PHOSPHATASE 113 IU/L (42-121); ALT ALANINE AMINOTRANSFERASE 24 IU/L (10-60); AST ASPARTATE AMINOTRANSFERASE 35 IU/L (10-42); BILIRUBIN,TOTAL 0.8 mg/dL (0.2-1.0); BUN - BLOOD UREA NITROGEN 22 mg/dL (6-20); CALCIUM 9.4 mg/dL (8.5-10.3); CARBON DIOXIDE - CO2 25 mmol/L (21-32); CHLORIDE 106 mmol/L (101-111); CHOL/HDL RATIO 2.9 (<5.0); CHOLESTEROL 120 mg/dL; CREATININE 1.2 mg/dL (0.6-1.2); GFR - MDRD 58 (>89); GLUCOSE 72 mg/dL (70-100); HDL CHOLESTEROL 42 mg/dL; LDL CHOLESTEROL,CALCULATED 59 mg/dL; LDL/HDL RATIO 1.4 (<3.6); POTASSIUM 4.9 mmol/L (3.5-5.0); SODIUM 140 mmol/L (135-145); TOTAL PROTEIN 6.7 g/dL (6.7-8.2); TRIGLYCERIDES 94 mg/dL; VLDL CHOLESTEROL 19 mg/dL
[2021-09-18 11:58] LABS: BASOPHILS # (AUTO) 0.1 10^3/uL (0.0-0.1); BASOPHILS % (AUTO) 1.1 %; EOSINOPHILS # (AUTO) 0.3 10^3/uL (0.0-0.7); EOSINOPHILS % (AUTO) 4.2 %; LYMPHOCYTES # (AUTO) 1.8 10^3/uL (1.5-3.5); MEAN CORPUSCULAR HEMOGLOBIN 31.2 pg (27.0-31.0); MEAN CORPUSCULAR HGB CONC 32.4 g/dL (32.0-36.0); MEAN CORPUSCULAR VOLUME 96.3 fL (80.0-94.0); MONOCYTES # (AUTO) 0.6 10^3/uL (0.0-1.0); MONOCYTES % (AUTO) 8.2 %; NEUTROPHILS # (AUTO) 4.7 10^3/uL (1.5-6.6); NEUTROPHILS % (AUTO) 62.2 %; PLT - PLATELET COUNT 252 10^3/uL (130-450); RED BLOOD COUNT 3.53 10^6/uL (4.70-6.10); RED CELL DISTRIBUTION WIDTH 13.2 % (12.0-15.0); WHITE BLOOD COUNT 7.6 x10^3/uL (4.8-10.8)
[2021-09-18 12:26] LABS: CREATININE,URINE 111.8 mg/dL; MICROALBUM/CREATININE RATIO,UR 8.9 ug/mg (<30.0)
[2021-09-18 13:07] LABS: ESTIMATED AVERAGE GLUCOSE 154 mg/dL (70-100)
== END 2021-09-18 07:07 | disposition home or self-care (01) ==
LOC: LAB.N 07:06
PROVIDERS: ATTEND Physician Assistant
DX: E11.9 Type 2 diabetes mellitus without complications (principal)
CPT/HCPCS: 36415; 80053; 80061; 82043; 82570; 83036; 83721; 85025

== ENCOUNTER 2022-03-19 07:19 | Outpatient (CLI) | payer OTHER ==
[2022-03-19 12:01] LABS: BASOPHILS # (AUTO) 0.1 10^3/uL (0.0-0.1); BASOPHILS % (AUTO) 0.8 %; EOSINOPHILS # (AUTO) 0.3 10^3/uL (0.0-0.7); EOSINOPHILS % (AUTO) 4.4 %; HCT - HEMATOCRIT 36.6 % (42.0-52.0); HGB - HEMOGLOBIN 12.1 g/dL (14.0-18.0); LYMPHOCYTES # (AUTO) 2.2 10^3/uL (1.5-3.5); LYMPHOCYTES % (AUTO) 30.5 %; MEAN CORPUSCULAR HEMOGLOBIN 31.8 pg (27.0-31.0); MEAN CORPUSCULAR HGB CONC 33.1 g/dL (32.0-36.0); MEAN CORPUSCULAR VOLUME 96.1 fL (80.0-94.0); MEAN PLATELET VOLUME 10.1 fL (7.4-11.4); MONOCYTES # (AUTO) 0.7 10^3/uL (0.0-1.0); NEUTROPHILS # (AUTO) 3.8 10^3/uL (1.5-6.6); PLT - PLATELET COUNT 229 10^3/uL (130-450); RED BLOOD COUNT 3.81 10^6/uL (4.70-6.10); RED CELL DISTRIBUTION WIDTH 12.8 % (12.0-15.0); WHITE BLOOD COUNT 7.1 x10^3/uL (4.8-10.8)
[2022-03-19 13:04] LABS: % IRON SATURATION 35 % (20-50); ALBUMIN 4.2 g/dL (3.2-5.5); ALBUMIN/GLOBULIN RATIO 1.3 (1.0-2.2); ALKALINE PHOSPHATASE 127 IU/L (42-121); ALT ALANINE AMINOTRANSFERASE 24 IU/L (10-60); AST ASPARTATE AMINOTRANSFERASE 31 IU/L (10-42); BILIRUBIN,TOTAL 0.8 mg/dL (0.2-1.0); BUN - BLOOD UREA NITROGEN 23 mg/dL (6-20); CALCIUM 9.8 mg/dL (8.5-10.3); CARBON DIOXIDE - CO2 26 mmol/L (21-32); CHLORIDE 108 mmol/L (101-111); CHOL/HDL RATIO 3.6 (<5.0); CHOLESTEROL 125 mg/dL; CREATININE 1.4 mg/dL (0.6-1.2); GFR - MDRD 48 (>89); GLUCOSE 89 mg/dL (70-100); HDL CHOLESTEROL 35 mg/dL; IRON 115 ug/dL (45-182); LDL CHOLESTEROL,CALCULATED 66 mg/dL; LDL/HDL RATIO 1.9 (<3.6); POTASSIUM 4.8 mmol/L (3.5-5.0); SODIUM 142 mmol/L (135-145); TOTAL IRON BINDING CAPACITY 332 ug/dL (250-450); TOTAL PROTEIN 7.4 g/dL (6.7-8.2); TRANSFERRIN 237 mg/dL (180-329); TRIGLYCERIDES 119 mg/dL; VLDL CHOLESTEROL 24 mg/dL
[2022-03-19 13:07] LABS: THYROID STIMULATING HORMONE 7.42 uIU/mL (0.34-5.60)
[2022-03-19 13:17] LABS: CREATININE,URINE 164.8 mg/dL; MICROALBUM/CREATININE RATIO,UR 6.1 ug/mg (<30.0)
[2022-03-19 13:32] LABS: ESTIMATED AVERAGE GLUCOSE 120 mg/dL (70-100); HEMOGLOBIN A1c% 5.8 % (4.27-6.07)
[2022-03-19 13:40] LABS: FREE T4 (FREE THYROXINE) 0.68 ng/dL (0.58-1.64)
== END 2022-03-19 07:20 | disposition home or self-care (01) ==
LOC: LAB.N 07:19
PROVIDERS: ATTEND Physician Assistant
DX: E11.9 Type 2 diabetes mellitus without complications (principal); E78.5 Hyperlipidemia, unspecified; D64.9 Anemia, unspecified; Z13.29 Encounter for screening for other suspected endocrine disorder
CPT/HCPCS: 36415; 80053; 80061; 82043; 82570; 83036; 83540; 83721; 84439; 84443; 84466; 85025

== ENCOUNTER 2022-09-14 07:05 | Outpatient (CLI) | payer OTHER ==
[2022-09-14 13:01] LABS: BASOPHILS # (AUTO) 0.1 10^3/uL (0.0-0.1); BASOPHILS % (AUTO) 0.6 %; EOSINOPHILS # (AUTO) 0.3 10^3/uL (0.0-0.7); EOSINOPHILS % (AUTO) 3.8 %; HCT - HEMATOCRIT 38.9 % (42.0-52.0); HGB - HEMOGLOBIN 12.5 g/dL (14.0-18.0); LYMPHOCYTES # (AUTO) 2.5 10^3/uL (1.5-3.5); MEAN CORPUSCULAR HEMOGLOBIN 31.6 pg (27.0-31.0); MEAN CORPUSCULAR HGB CONC 32.1 g/dL (32.0-36.0); MEAN CORPUSCULAR VOLUME 98.2 fL (80.0-94.0); MEAN PLATELET VOLUME 9.8 fL (7.4-11.4); MONOCYTES # (AUTO) 0.7 10^3/uL (0.0-1.0); MONOCYTES % (AUTO) 8.5 %; NEUTROPHILS # (AUTO) 4.7 10^3/uL (1.5-6.6); NEUTROPHILS % (AUTO) 56.9 %; PLT - PLATELET COUNT 268 10^3/uL (130-450); RED BLOOD COUNT 3.96 10^6/uL (4.70-6.10); RED CELL DISTRIBUTION WIDTH 12.3 % (12.0-15.0); WHITE BLOOD COUNT 8.2 x10^3/uL (4.8-10.8)
[2022-09-14 13:23] LABS: ALBUMIN 4.2 g/dL (3.2-5.5); ALBUMIN/GLOBULIN RATIO 1.4 (1.0-2.2); ALKALINE PHOSPHATASE 146 IU/L (42-121); ALT ALANINE AMINOTRANSFERASE 39 IU/L (10-60); AST ASPARTATE AMINOTRANSFERASE 37 IU/L (10-42); BILIRUBIN,TOTAL 0.7 mg/dL (0.2-1.0); BUN - BLOOD UREA NITROGEN 28 mg/dL (6-20); CALCIUM 9.7 mg/dL (8.5-10.3); CARBON DIOXIDE - CO2 27 mmol/L (21-32); CHLORIDE 108 mmol/L (101-111); CHOL/HDL RATIO 3.1 (<5.0); CHOLESTEROL 125 mg/dL; CREATININE 1.4 mg/dL (0.6-1.2); GFR - MDRD 48 (>89); GLUCOSE 87 mg/dL (70-100); HDL CHOLESTEROL 40 mg/dL; LDL CHOLESTEROL,CALCULATED 67 mg/dL; LDL/HDL RATIO 1.7 (<3.6); POTASSIUM 5.3 mmol/L (3.5-5.0); SODIUM 140 mmol/L (135-145); TOTAL PROTEIN 7.2 g/dL (6.7-8.2); TRIGLYCERIDES 92 mg/dL; VLDL CHOLESTEROL 18 mg/dL
[2022-09-14 13:31] LABS: THYROID STIMULATING HORMONE 8.94 uIU/mL (0.34-5.60)
[2022-09-14 14:03] LABS: ESTIMATED AVERAGE GLUCOSE 137 mg/dL (70-100); HEMOGLOBIN A1c% 6.4 % (4.27-6.07)
[2022-09-14 14:42] LABS: FREE T4 (FREE THYROXINE) 0.8 ng/dL (0.58-1.64)
== END 2022-09-14 07:06 | disposition home or self-care (01) ==
LOC: LAB.N 07:05
PROVIDERS: ATTEND Physician Assistant
DX: E11.22 Type 2 diabetes mellitus with diabetic chronic kidney disease (principal); N18.30 Chronic kidney disease, stage 3 unspecified; E78.5 Hyperlipidemia, unspecified; D64.9 Anemia, unspecified
CPT/HCPCS: 36415; 80053; 80061; 83036; 83721; 84439; 84443; 85025

== ENCOUNTER 2022-09-29 07:05 | Outpatient (CLI) | payer OTHER ==
[2022-09-29 12:34] LABS: CALCIUM 9.5 mg/dL (8.5-10.3); CREATININE 1.4 mg/dL (0.6-1.2); POTASSIUM 4.6 mmol/L (3.5-5.0)
== END 2022-09-29 07:06 | disposition home or self-care (01) ==
LOC: LAB.N 07:05
PROVIDERS: ATTEND Physician Assistant
DX: E87.5 Hyperkalemia (principal)
CPT/HCPCS: 36415; 80048

== ENCOUNTER 2023-03-10 07:05 | Outpatient (CLI) | payer OTHER ==
[2023-03-10 11:55] LABS: ESTIMATED AVERAGE GLUCOSE 126 mg/dL (70-100)
[2023-03-10 12:01] LABS: BASOPHILS # (AUTO) 0.1 10^3/uL (0.0-0.1); BASOPHILS % (AUTO) 0.9 %; EOSINOPHILS # (AUTO) 0.3 10^3/uL (0.0-0.7); EOSINOPHILS % (AUTO) 3.8 %; HCT - HEMATOCRIT 37.7 % (42.0-52.0); HGB - HEMOGLOBIN 12.1 g/dL (14.0-18.0); LYMPHOCYTES % (AUTO) 29.4 %; MEAN CORPUSCULAR HEMOGLOBIN 31.2 pg (27.0-31.0); MEAN CORPUSCULAR HGB CONC 32.1 g/dL (32.0-36.0); MEAN CORPUSCULAR VOLUME 97.2 fL (80.0-94.0); MEAN PLATELET VOLUME 9.9 fL (7.4-11.4); MONOCYTES # (AUTO) 0.6 10^3/uL (0.0-1.0); NEUTROPHILS # (AUTO) 3.9 10^3/uL (1.5-6.6); NEUTROPHILS % (AUTO) 56.6 %; PLT - PLATELET COUNT 230 10^3/uL (130-450); RED BLOOD COUNT 3.88 10^6/uL (4.70-6.10); RED CELL DISTRIBUTION WIDTH 12.8 % (12.0-15.0); WHITE BLOOD COUNT 6.8 x10^3/uL (4.8-10.8)
[2023-03-10 12:13] LABS: ALBUMIN 4.3 g/dL (3.2-5.5); ALBUMIN/GLOBULIN RATIO 1.7 (1.0-2.2); ALKALINE PHOSPHATASE 159 IU/L (42-121); ALT ALANINE AMINOTRANSFERASE 31 IU/L (10-60); AST ASPARTATE AMINOTRANSFERASE 32 IU/L (10-42); BILIRUBIN,TOTAL 0.6 mg/dL (0.2-1.0); BUN - BLOOD UREA NITROGEN 22 mg/dL (6-20); CALCIUM 9.9 mg/dL (8.5-10.3); CARBON DIOXIDE - CO2 28 mmol/L (21-32); CHLORIDE 110 mmol/L (101-111); CHOL/HDL RATIO 3.2 (<5.0); CHOLESTEROL 123 mg/dL; CREATININE 1.3 mg/dL (0.6-1.3); GFR - MDRD 52 (>89); GLUCOSE 96 mg/dL (74-104); HDL CHOLESTEROL 38 mg/dL; LDL CHOLESTEROL,CALCULATED 60 mg/dL; LDL/HDL RATIO 1.6 (<3.6); POTASSIUM 4.8 mmol/L (3.5-4.5); SODIUM 142 mmol/L (135-145); TOTAL PROTEIN 6.9 g/dL (6.4-8.9); TRIGLYCERIDES 125 mg/dL (48-352); VLDL CHOLESTEROL 25 mg/dL
[2023-03-10 12:33] LABS: THYROID STIMULATING HORMONE 4.46 uIU/mL (0.34-5.60)
[2023-03-10 12:34] LABS: CREATININE,URINE 104.3 mg/dL; MICROALBUM/CREATININE RATIO,UR 9.6 ug/mg (<30.0)
== END 2023-03-10 07:06 | disposition home or self-care (01) ==
LOC: LAB.N 07:05
PROVIDERS: ATTEND Physician Assistant
DX: E11.22 Type 2 diabetes mellitus with diabetic chronic kidney disease (principal); N18.30 Chronic kidney disease, stage 3 unspecified; R94.6 Abnormal results of thyroid function studies
CPT/HCPCS: 36415; 80053; 80061; 82043; 82570; 83036; 83721; 84443; 85025

== ENCOUNTER 2024-02-26 10:36 | Emergency (ER) | payer OTHER ==
[2024-02-26 11:26] VITALS: O2SAT 98
[2024-02-26 11:31] LABS: BASOPHILS # (AUTO) 0.1 10^3/uL (0.0-0.1); BASOPHILS % (AUTO) 0.7 %; EOSINOPHILS # (AUTO) 0.4 10^3/uL (0.0-0.7); EOSINOPHILS % (AUTO) 3.5 %; HCT - HEMATOCRIT 30.4 % (42.0-52.0); HGB - HEMOGLOBIN 9.8 g/dL (14.0-18.0); LYMPHOCYTES % (AUTO) 8.2 %; MEAN CORPUSCULAR HEMOGLOBIN 31.1 pg (27.0-31.0); MEAN CORPUSCULAR HGB CONC 32.2 g/dL (32.0-36.0); MEAN CORPUSCULAR VOLUME 96.5 fL (80.0-94.0); MEAN PLATELET VOLUME 8.6 fL (7.4-11.4); MONOCYTES # (AUTO) 1.3 10^3/uL (0.0-1.0); MONOCYTES % (AUTO) 11.1 %; NEUTROPHILS # (AUTO) 8.9 10^3/uL (1.5-6.6); NEUTROPHILS % (AUTO) 75.6 %; PLT - PLATELET COUNT 360 10^3/uL (130-450); RED BLOOD COUNT 3.15 10^6/uL (4.70-6.10); RED CELL DISTRIBUTION WIDTH 12.9 % (12.0-15.0); WHITE BLOOD COUNT 11.8 x10^3/uL (4.8-10.8)
--- NOTE | 2024-02-26 11:39 | ED Physician Documentation ---
History of Present Illness - Stated complaint Stated Complaint: LT SIDE INJ - Chief complaint Chief Complaint: Trauma Ch/Bk - Additonal information Additional information: Patient is an 84-year-old male presenting to the emergency department with 2 falls on last Wednesday and Wednesday. Patient notes he bought a new mattress recently and he fell out of bed when trying to put his lithopone charger into the wall. Patient notes he fell on his left side each time. He notes over the week he has persistent left rib cage pain. He notes symptoms worsen with coughing or trying to take a deep breath. He denies any previous fractures or injuries to this area. He denies any other pain. He notes no fevers no significant shortness of breath no anterior or posterior chest pain. Patient has past medical history of hyperlipidemia, hypertension, type 2 diabetes. Patient has been compliant with his home medications. Patient has prescription for tramadol at home he is unsure if he is taking this regularly at home. Patient has not taken anything else for pain control at home. He denies any lower back pain. No numbness or tingling in extremities.He denies hitting his head or losing consciousness during these falls. Patient is also not on blood thinners. PD PAST MEDICAL HISTORY - Past Medical History Past Medical History: Yes Cardiovascular: Hypertension, High cholesterol Respiratory: None Neuro: CVA Endocrine/Autoimmune: None, Type 2 diabetes GI: None : None, Kidney stones HEENT: None Psych: None Musculoskeletal: Osteoarthritis Derm: None - Past Surgical History Past Surgical History: Yes General: Colonoscopy, EGD - Present Medications Home Medications: Ambulatory Orders Medication Instructions Recorded Confirmed Lisinopril 20 mg PO DAILY 12/26/12 02/26/24 Simvastatin 20 mg PO QPM 12/26/12 02/26/24 Gabapentin 600 mg PO TID 07/08/18 02/26/24 Ferrous Sulfate 325 mg PO DAILY 07/09/18 02/26/24 Glimepiride [Amaryl] 1 mg ORAL DAILY 12/30/20 02/26/24 - Allergies Allergies/Adverse Reactions: Allergies Allergy/AdvReac Type Severity Reaction Status Date / Time nortriptyline [Nortriptyline] Allergy Unknown unknown Verified 07/08/18 15:05 - Social History Does the pt smoke?: No Smoking Status: Former smoker Does the pt drink ETOH?: No Does the pt have substance abuse?: No - Immunizations Immunizations are current?: Yes - POLST Patient has POLST: No POLST Status: Full Code PD ED PE NORMAL - Vitals Vital signs reviewed: Yes - General General: Alert and oriented X 3 - HEENT HEENT: Atraumatic - Neck Neck: C-Spine cleared by NEXUS criteria - Cardiac Cardiac: RRR, No murmur, No gallop, No rub - Respiratory Respiratory: No respiratory distress, Clear bilaterally, Other (Reproducible left rib cage tenderness there appears to be bruising over lateral portion of left rib cage reproducible tenderness over this region. No significant swelling no step-off on examination no palpable crepitus.) - Abdomen Abdomen: Normal bowel sounds, Non tender, Non distended - Back Back: No spinal TTP - Derm Derm: Normal color, No rash - Extremities Extremities: No deformity - Neuro Neuro: Alert and oriented X 3 Eye Opening: Spontaneous Motor: Obeys Commands Verbal: Oriented GCS Score: 15 Results - Vitals Vitals: Oxygen O2 Source [With Activity] Nasal cannula O2 Source [Without Activity] Nasal cannula O2 Source Room air - Labs Labs: Laboratory Tests 02/26/24 02/26/24 11:20 11:20 WBC 11.8 H RBC 3.15 L Hgb 9.8 L Hct 30.4 L MCV 96.5 H MCH 31.1 H MCHC 32.2 RDW 12.9 Plt Count 360 MPV 8.6 Neut # (Auto) 8.9 H Lymph # (Auto) 1.0 L [place] # (Auto) 1.3 H Eos # (Auto) 0.4 Baso # (Auto) 0.1 Absolute Nucleated RBC 0.00 Nucleated RBC % 0.0 Sodium 138 Potassium 4.8 H Chloride 107 Carbon Dioxide 25 Anion Gap 6.0 BUN 45 H Creatinine 2.0 H Estimated GFR (MDRD) 32 L Glucose 138 H Calcium 9.4 Total Bilirubin 2.0 H AST 54 H ALT 36 Alkaline Phosphatase 256 H Troponin I High Sens 12.4 Total Protein 5.9 L Albumin 3.1 L Globulin 2.8 Albumin/Globulin Ratio 1.1 PD Medical Decision Making - ED course Complexity details: reviewed old records, reviewed results ED course: Patient is a 84-year-old male presents to the emergency department after 2 falls out of bed earlier today. Patient notes pain to his left side with significant pain with taking a deep breath. His granddaughter presents with him and she notes worsening shortness of breath and fatigue at home as well. Patient is not on any blood thinners he does take aspirin 81 mg daily. He has no previous injury to his left side. Denies hitting his head or losing consciousness. His vitals were stable on arrival. Blood pressure is stable but soft at 106/49. Patient EKG does show low voltage QRS this is changed from EKG evaluated in 2019 but sinus rhythm noted. No signs of electrical alternans. Labs here in the emergency department show elevated white blood cell count at 11 with hemoglobin of 9.8. Patient's previous hemoglobin at 12 but this was from 1 year ago. Patient denies any black or bloody stools or abnormal bleeding. Potassium elevated at 4.8 with creatinine elevated at 2.0. Baseline creatinine at 1.4 but getting comparing from results 1 year ago. Patient AST slightly elevated at 56 but no other acute changes. Discussed with patient would like to obtain CT scan of chest without contrast to evaluate for rib fractures he is agreeable with this plan. Lidocaine patch placed to the left side of chest for pain control here in ED in the meantime. CT of chest does show a large pericardial effusion.Large vascular congestion noted as well. Patient shows no signs of fluid overload on examination. Discussed with patient would like to obtain CTA of the chest for further evaluation. Patient understands and is agreeable with this plan. Received call from radiologist at [address] scan shows large right-sided pulmonary embolism clot burden. Patient will not be started on blood thinners as concerns for pericardial effusion could be secondary to trauma and to prevent worsening of this.There appears to be no comment despite CTA scan being performed for aortic dissection concerning for findings secondary to trauma possible pericardial effusion caused by aortic dissection. This is not reported on imaging attempted to get back in contact with radiologist pending at this time. Discussed case with [facility] for transfer as concerns for pulmonary embolism with concerns for new pericardial effusion that is large no signs of tamponade on CT scan. Will hold off on ultrasound at this time as patient has blood pressures that are stable and no tachycardia appreciated. Patient remaining on room air oxygen. 1541: Discussed with [facility] patient is an automatic admit. Will transfer patient to [facility] for further evaluation. Patient report given to Dr. Enamorado in emergency department. Given patient is an automatic admission no need to discuss with CT surgery at this time they will evaluate patient on arrival. Updated patient and family member and they are agreeable with this plan at this time.Patient will be life [facility]. Patient and granddaughter are agreeable with this plan. Updated hospital no blood thinner started patient's labs updated to ER physician as well for DAVID and hyperkalemia but no other acute findings. Patient calculates for a Maynor score of 2 given PE clot burden. They accept patient and [facility] called with 20 minutes out. Patient still stable prior to transfer no acute changes in condition Departure - Departure Disposition: 02 Transfer Acute Care Hosp Clinical Impression: Pericardial effusion, Pulmonary embolism on right, Closed rib fracture, Left rib fracture, Pleural effusion Condition: Stable Forms: PCP List Discharge Date/Time: 02/26/24 16:42
[2024-02-26 11:42] LABS: ALBUMIN 3.1 g/dL (3.2-5.5); ALBUMIN/GLOBULIN RATIO 1.1 (1.0-2.2); CALCIUM 9.4 mg/dL (8.5-10.3); POTASSIUM 4.8 mmol/L (3.5-4.5); TOTAL PROTEIN 5.9 g/dL (6.4-8.9)
[2024-02-26 11:45] LABS: TROPONIN I HIGH SENSITIVITY 12.4 ng/L (2.3-19.7)
--- NOTE | 2024-02-26 12:30 | CT Report ---
PROCEDURE: Chest WO INDICATIONS: concern for left sided rib fracture TECHNIQUE: A CT scan of the chest was performed. Intravenous contrast media was not administered. Images were re corded and evaluated at appropriate window settings. Reformats: axial MIP of the chest, coronal and s agittal. For radiation dose reduction, the following was used: automated exposure control, adjustment of mA and/or kV according to patient size. COMPARISON: None. FINDINGS: Image quality: Diagnostic. Chest wall and lower neck: No thyroid nodule which requires sonographic follow up. No axillary or sup raclavicular adenopathy by size. Lungs and pleura: There are bilateral pleural effusions with associated compressive atelectasis. Ther e is also atelectasis of the right lower lobe anteriorly at the fissure. There is no focal consolidat ion or pneumothorax. No suspicious pulmonary nodules which require follow up. Mediastinum: Heart size is normal. There is a large pericardial effusion measuring 3.1 cm in depth an teriorly. No large vessel abnormality. No mediastinal adenopathy by size criteria. Bones: There are nondisplaced fractures of the left lateral ninth and 10th ribs. No other fractures i dentified. Upper Abdomen: No acute abnormality. IMPRESSION: Nondisplaced left ninth and 10th rib fractures. Moderate bilateral pleural effusions and a large pericardial effusion. Reviewed by: Nancy Cifuentes MD on 02/26/2024 11:29 AM MARIA LUISA Approved by: Nancy Cifuentes MD on 02/26/2024 11:29 AM MARIA LUISA Station ID: [id number]
[2024-02-26] MEDS ORDERED: iohexoL-300 100 ML VIAL ONE (13:00)
[2024-02-26] MEDS: LIDOCAINE PATCH 4% TOP STA (13:30)
[2024-02-26 13:34] VITALS: BP 129/75
--- NOTE | 2024-02-26 14:06 | CT Report ---
PROCEDURE: Angio Chest INDICATIONS: please evaluate for arterial dissection CONTRAST: 80ml omni 300 TECHNIQUE: After the administration of intravenous contrast, 2 mm axial images were acquired from the pulmonary apices to the posterior costophrenic angles during the arterial phase. In addition, 1 mm lung kernel and 5 mm soft tissue kernel reconstructions were performed. 3-dimensional coronal oblique maximum int ensity projection (MIP) reformats, 8 mm axial MIP, and 5 mm coronal and sagittal MPR reformats were t hen performed through the thorax. For radiation dose reduction, the following was used: automated exp osure control, adjustment of mA and/or kV according to patient size. COMPARISON: None. FINDINGS: Image quality: Excellent. Large vessels: Pulmonary arterial filling defects are seen extending from the right main pulmonary ar libby into the segmental and subsegmental arteries of all 3 lobes. There is no left-sided pulmonary ar terial filling defect. Lungs and pleura: No consolidation. No pleural effusions. No pneumothorax. No suspicious pulmonary n odules which require follow up. Mediastinum: Heart size is normal, although there is enlargement of the right ventricle relative to t he left ventricle with a ratio of 1.44. Again seen is a large pericardial effusion. Coronary atherosc lerosis is present. No mediastinal adenopathy by size criteria. Chest wall and lower neck: There is a hypoattenuating left thyroid nodule which measures 2.2 x 1.6 cm . No axillary or supraclavicular adenopathy by size. Bones: No aggressive osseous abnormality. Upper Abdomen: Unremarkable. Specifically, there is no contrast reflux into the hepatic veins. IMPRESSION: Multilobar right pulmonary emboli with findings concerning for associated right heart strain. These findings were discussed with BRANDIE Johnson in the ED at 1302 hrs on March 14. Reviewed by: Nancy Cifuentes MD on 02/26/2024 1:04 PM MARIA LUISA Approved by: Nancy Cifuentes MD on 02/26/2024 1:04 PM MARIA LUISA Station ID: [id number]
[2024-02-26] MEDS: SODIUM CHLORIDE 0.9% 500 ML IV STA (14:14)
[2024-02-26] MEDS: iohexoL-300 100 ML VIAL IVP ONE (15:29)
== END 2024-02-26 16:42 | disposition short-term general hospital (02) ==
LOC: ED 10:36
DX: S22.42XA Multiple fractures of ribs, left side, initial encounter for closed fracture (principal); W06.XXXA Fall from bed, initial encounter; Y92.003 Bedroom of unspecified non-institutional (private) residence as the place of occurrence of the external cause; I31.39 Other pericardial effusion (noninflammatory); I26.99 Other pulmonary embolism without acute cor pulmonale; J90 Pleural effusion, not elsewhere classified; D72.829 Elevated white blood cell count, unspecified; E87.5 Hyperkalemia; R74.01 Elevation of levels of liver transaminase levels; N17.9 Acute kidney failure, unspecified
CPT/HCPCS: 36415; 71250; 71275; 80053; 84484; 85025; 93005; 99285; A9270; Q9967